=== PATIENT | female | born 1975 | race Caucasian/White ===

== ENCOUNTER 2016-08-30 08:33 | Day surgery (SDC) | payer BC ==
[~2016-08-30 08:33] MED LIST: Buffered Lidocaine 1% SYR 3ML* 3 ML/SYR SYRINGE INTRADERM ONE; Dexamethasone IV* 4 MG/ML 1 ML (4 MG) IV SLOW PU ONE; Famotidine IV* 10 MG/ML 2 ML (20 mg) IV ONE
[2016-08-30] MEDS ORDERED: Dexamethasone IV* 4 MG/ML 1 ML (4 MG) ONE (08:50)
[2016-08-30] MEDS ORDERED: Famotidine IV* 10 MG/ML 2 ML (20 mg) ONE (08:50)
[2016-08-30 09:23] LABS: Manual Entry Verification HAN0055; UR Preg Internal Control QC Line Present
[2016-08-30] MEDS ORDERED: Ondansetron INJ* 2 MG/ML VIAL IV PRN (09:31)
[2016-08-30] MEDS ORDERED: fentaNYL* 50 MCG/ML 2 ML VIAL (100 MCG VIAL) IV PRN (09:31)
[2016-08-30] MEDS ORDERED: fentaNYL* 50 MCG/ML 5 ML VIAL (250 MCG VIAL) ONE (09:33)
[2016-08-30] MEDS ORDERED: Lidocaine 2% PF * 5 ML VIAL ONE (09:33)
[2016-08-30] MEDS ORDERED: Ondansetron INJ* 2 MG/ML VIAL ONE (09:33)
[2016-08-30] MEDS ORDERED: Propofol* 10 MG/ML 20 ML BTL IV PUSH ONE (09:33)
[2016-08-30] MEDS ORDERED: Midazolam* 1 MG/ML 5 ML VIAL (5 MG) ONE (09:33)
[2016-08-30] MEDS ORDERED: Ketorolac INJ* 30 MG/ML 1 ML VIAL ONE (09:33)
[2016-08-30] MEDS ORDERED: Glycopyrrolate IV* 0.2 MG/ML 1 ML VIAL ONE (09:48)
[2016-08-30] MEDS ORDERED: Atropine 1MG/ML INJ* 1 ML VIAL ONE (09:49)
[2016-08-30] MEDS ORDERED: fentaNYL* 50 MCG/ML 2 ML VIAL (100 MCG VIAL) ONE (10:42)
[2016-08-30] MEDS: oxyCODONE/Acetamin 5/325 MG* TAB PO PRN ×2 (10:46→10:53)
[2016-08-30] MEDS ORDERED: oxyCODONE/Acetamin 5/325 MG* TAB ONE (10:46)
[2016-08-30 11:07] VITALS: BP 109/67
--- NOTE | 2016-08-30 22:26 | OP ---
DATE OF OPERATION: 08/30/16 - [facility] DATE OF : 71 SURGEON: Waylon Hudson MD MUD TRUCKER: None. ANESTHESIOLOGIST: Mike Lyon MD ANESTHESIA: General endotracheal tube. PRE-OP DIAGNOSIS: Endometrial polyp. POST-OP DIAGNOSIS: Thickened, fluffy endometrium, question polyp. OPERATIVE PROCEDURE: D and C, hysteroscopy, MyoSure. ESTIMATED BLOOD LOSS: Minimal. SPECIMEN: Include endometrium and question polyp. FINDINGS: On exam under anesthesia, the uterus was mid position, sounded to 7 cm. On hysteroscopy, there was thickened, fluffy endometrium much of which was loose and friable and detached making visualization difficult. DESCRIPTION OF PROCEDURE: The patient identified, procedure identified as D and C, hysteroscopy, MyoSure. The patient was taken to the operating room, prepped, and draped in the usual fashion in the dorsal lithotomy position under general anesthesia. Two single-tooth tenaculums were placed on the anterior lip of the cervix. Cervix was easily dilated up to #28 Burke dilator. The MyoSure hysteroscope was inserted. The above findings were noted. The MyoSure LITE was utilized to basically resect any fluffy, thickened endometrium so better visualization could occur. The cavity appeared normal. There were no polyps. No fibroid visualized distinctly and both tubal ostia were present and visualized. The rest of the cavity appeared normal and all instruments were removed from vagina. The both single-tooth tenaculums were removed and the patient returned to recovery room in stable condition. All sponge and instrument counts were correct. [id number]/[facility] #: [id number] MTDD
== END 2016-08-30 11:52 | disposition home or self-care (01) ==
LOC: OR 08:33
PROVIDERS: ATTEND Obstetrics & Gynecology
DX: N84.0 Polyp of corpus uteri (principal); R00.2 Palpitations; J45.909 Unspecified asthma, uncomplicated
CPT/HCPCS: 36415; 81025; 86850; 86900; 86901; 88305; A9270-GY; J0461; J1100; J1885; J2250; J2405; J2704; J3010

== ENCOUNTER 2018-03-11 20:05 | Emergency (ER) | payer BC ==
[2018-03-11 21:21] VITALS: BP 119/70
--- NOTE | 2018-03-11 21:31 | UC ---
- HPI Summary HPI Summary: 42 y/o female presents to the urgent care requesting a urine and blood test since she did 2 this morning and were positive. Pt reports she has been trying to get for the past couple of year w/o any success. She had IUI at the [facility] in Jul-Aug of this year and she has been experiencing some hormonal dysfunction. Her periods have been irregular, her digestion and mood has changed. For the past week she has been experiencing breast engorgement. LMP: 01/22/2018. Pt denies fever, SOB,MON, chest pain, abdominal pain, pelvic pain, urinary symptoms, N/V/D. - History of Current Complaint Chief Complaint: UCGeneralIllness Stated Complaint: PREG TEST Time Seen by Provider: 03/11/18 21:21 Hx Obtained From: Patient Chief Complaint: Other: - Onset/Duration: Started Weeks Ago - 1 week, Still Present Timing: Constant Severity: Mild Current Severity: None Pain Intensity: 0 Location of Pain: None Character: None Aggravating Factors: Nothing Alleviating Factors: Nothing Associated Signs and Symptoms: Positive: Negative - Assessment Hx Now: Yes - positive at home test Hx Hysterectomy: No - Risk Factors Ectopic Risk Factor: Negative Ovarian Torsion Risk Factor: Negative - Allergies/Home Medications Allergies/Adverse Reactions: Allergies Allergy/AdvReac Type Severity Reaction Status Date / Time epinephrine Allergy Unknown Verified 03/11/18 21:07 Reaction Details gluten Allergy Abdominal Verified 03/11/18 21:07 Pain Home Medications: Home Medications Gabapentin 300 mg PO BEDTIME 03/11/18 [History Confirmed 03/11/18] Naltrexone HCl Dihydrate 50 gm PO BEDTIME 03/11/18 [History Confirmed 03/11/18] PMH/Surg Hx/FS Hx/Imm Hx Previously Healthy: Yes GI/ History: Other - colitis Other GI/ History: Celiac disease Other Neurological History: Herniated discs Other History Of: Negative For: HIV, Hepatitis B, Hepatitis C, Anticoagulant Therapy - Surgical History Surgical History: Yes Surgery Procedure, Year, and Place: LEFT FOOT BUNIONECTOMY 2008. RIGHT FOOT SLICED THROUGH TENDON ON BIG TOE AND REATTACHED IT TO THE 2ND TOE-2008 - Family History Known Family History: Positive: Hypertension - Social History Occupation: Employed Full-time Lives: With Family Alcohol Use: Rare Alcohol Amount: 3 per week Substance Use Type: None Smoking Status (MU): Never Smoked Tobacco Have You Smoked in the Last Year: No Review of Systems Constitutional: Negative Skin: Negative Eyes: Negative ENT: Negative Respiratory: Negative Cardiovascular: Negative Gastrointestinal: Negative Genitourinary: Negative Motor: Negative Neurovascular: Negative Musculoskeletal: Negative Neurological: Negative Psychological: Negative Is Patient Immunocompromised?: No All Other Systems Reviewed And Are Negative: Yes Physical Exam - Summary Physical Exam Summary: VITAL SIGNS: Reviewed. GENERAL: Patient is a well developed and nourished female who is sitting comfortable in the examining table. Patient is not in any acute respiratory distress. HEAD AND FACE: No signs of trauma. No ecchymosis, hematomas or skull depressions. No sinus tenderness. EYES: PERRLA, EOMI x 2, No injected conjunctiva, clear watery eyes, no nystagmus. No photophobia. EARS: Hearing grossly intact. Ear canals and tympanic membranes are within normal limits. MOUTH: pharynx with no erythema, no exudates,no palatal petechiae. no B/L tonsillar enlargement Uvula in midline. NECK: Supple, trachea is midline, no lymphadenopathy, no JVD, no carotid bruit, no c-spine tenderness, neck with full ROM. CHEST: Symmetric, no tenderness at palpation LUNGS: Clear to auscultation bilaterally. No wheezing or crackles. CVS: Regular rate and rhythm, S1 and S2 present, no murmurs or gallops appreciated. ABDOMEN: Soft, non-tender. No signs of distention. No rebound no guarding, and no masses palpated. Bowel sounds are normal. BACK:no scoliosis or lesions, non tender to palpation, No B/L CVA tenderness EXTREMITIES: FROM in all major joints, no edema, no cyanosis or clubbing. NEURO: Alert and oriented x 3. No acute neurological deficits. Speech is normal and follows commands. SKIN: Dry and warm - Physical Exam Triage Information Reviewed: Yes Course/Dx - Course Course Of Treatment: 42 y/o female presents to the urgent care requesting a urine and blood test since she did 2 this morning and were positive. Pt reports she has been trying to get for the past couple of year w/o any success. She had IUI at the [facility] in Jul-Aug of this year and she has been experiencing some hormonal dysfunction. Her periods have been irregular, her digestion and mood has changed. For the past week she has been experiencing breast engorgement. LMP: 01/22/2018. Pt denies fever, SOB, MON, chest pain, abdominal pain, pelvic pain, urinary symptoms, N/V/D. Hx obtained. PE:WNL. UA: negative. UA : Positive. HCG ordered. Pt Rx Prenaltal vitamins and givne referral w/ OBGYN Dr Man for pre-jennifer care. D/ C instructions explained. Pt understood and agreed w/ plan of care - Differential Diagnosis/HQI/PQRI: Incomplete , Missed , Spontaneous , Amenorrhea, Ectopic , Intrauterine , First Trimester Bleeding, Early , UTI - Diagnoses Provider Diagnoses: Discharge - Sign-Out/Discharge Documenting (check all that apply): Patient Departure All imaging exams completed and their final reports reviewed: No Studies - Discharge Plan Condition: Stable Disposition: HOME Prescriptions: Pnv No.121/Iron/Folic Acid [ Multivitamin Tablet] 1 each PO DAILY #30 tablet Patient Education Materials: (ED) Referrals: Nish Man MD [Medical Doctor] - 3 Days Maria T Conley MD [Primary Care Provider] - 1 Week Additional Instructions: 1- test is positive. 2- Please start taking vitamins 3- F/u w/ OBBREND[facility] Dr Man for your care. - Billing Disposition and Condition Condition: STABLE Disposition: Home
== END 2018-03-11 22:07 | disposition home or self-care (01) ==
LOC: UCEAST 20:05
DX: Z33.1 Pregnant state, incidental (principal); Z88.8 Allergy status to other drugs, medicaments and biological substances
CPT/HCPCS: 36415; 81003; 84702; 99212; G0463

== ENCOUNTER 2018-03-23 11:48 | Emergency (ER) | payer BC ==
[2018-03-23 12:44] LABS: INR 1.06 (0.77-1.02)
[2018-03-23 12:55] LABS: EGFR Non-African American 82.7 (>60)
--- NOTE | 2018-03-23 13:14 | RAD ---
HISTORY: Beta hCG trending downwards COMPARISONS: None TECHNIQUE: Multiple transverse and longitudinal ultrasound images were obtained of the pelvis using grayscale, color flow, spectral and M-mode sonographic imaging. FINDINGS: UTERUS: The uterus is normal in shape, size, contour, and echotexture. GESTATION: A pole measuring 0.6 cm identified which corresponds to a gestational age of 6 weeks and 4 days. There is no cardiac activity or movement identified. There is no yolk sac. The mean gestational sac diameter measures 1.3 centimeters yielding a gestational age of 6 weeks and 1 day. CUL-DE-SAC: There is no free fluid within the cul-de-sac. RIGHT OVARY: The right ovary measures 2.8 x 1.8 x 1.7 cm. LEFT OVARY: The left ovary measures 2.2 x 1.6 x 1.6 cm. And the left ovary there is an anechoic and avascular structure measuring 1 cm in greatest dimension most consistent with a corpus luteum. IMPRESSION: The pole and mean gestational sac diameter correspond to a gestational age of 6 weeks and 4 days and 6 weeks and 1 day, respectively. There is no cardiac activity, motion or yolk sac identified. Sonographic findings in the presence of declining beta-hCG indicates demise. Close clinical and sonographic follow-up including serial beta hCG is advised.
--- NOTE | 2018-03-23 14:42 | ED ---
- HPI Summary HPI Summary: Patient is a 42-year-old female presenting to the ED with the concern for low hCGs 2 and diffuse abdominal cramping. She was sent in by her [employer] SAL[employer] CONSULTANT to assess for embryonic demise. She denies any nausea, vomiting, diarrhea, constipation. No history of miscarriage. States her original HEG level was taken 13 days ago and was listed at 6700, 1 week after that it was recorded at 7100. She sees Madisyn Wyatt, public health advisor. She denies any vaginal bleeding or chance of STDs. Pain is rated a 4/10, constant and cramping. She denies taking anything for pain. - History of Current Complaint Chief Complaint: EDOBProblems Stated Complaint: ABD PAIN/8 WKS PREG Time Seen by Provider: 03/23/18 12:02 Hx Obtained From: Patient Chief Complaint: Concern for Embryonic Dem Onset/Duration: Started Hours Ago Timing: Constant Severity: Moderate Current Severity: Moderate Pain Intensity: 0 Location of Pain: Diffuse Character: Burning Associated Signs and Symptoms: Negative: Appetite, Urinary Symptoms, Vaginal Bleeding or Discharge - Assessment Hx Now: Yes - positive at home test Hx Hysterectomy: No - Allergies/Home Medications Allergies/Adverse Reactions: Allergies Allergy/AdvReac Type Severity Reaction Status Date / Time epinephrine Allergy Unknown Verified 03/23/18 11:54 Reaction Details gluten Allergy Abdominal Verified 03/23/18 11:54 Pain PMH/Surg Hx/FS Hx/Imm Hx Previously Healthy: Yes Endocrine/Hematology History: Denies: Hx Anticoagulant Therapy, Hx Diabetes, Hx Thyroid Disease Cardiovascular History: Denies: Hx Congestive Heart Failure, Hx Deep Vein Thrombosis, Hx Hypertension , Hx Myocardial Infarction, Hx Pacemaker/ICD, Other Cardiovascular Problems/ Disorders Respiratory History: Reports: Hx Asthma - EXERCISE INDUCED Denies: Hx Chronic Obstructive Pulmonary Disease (COPD), Hx Lung Cancer, Hx Pneumonia, Hx Pulmonary Embolism, Other Respiratory Problems/Disorders GI History: Reports: Other GI Disorders - ulcerative colitis Denies: Hx Gall Bladder Disease, Hx Gastrointestinal Bleed, Hx Ulcer, Hx Urosepsis History: Denies: Hx Kidney Stones, Hx Renal Disease Musculoskeletal History: Reports: Hx Arthritis - spine,, Other Musculoskeletal History - hypermobility syndrome Denies: Hx Rheumatoid Arthritis, Hx Osteoporosis Sensory History: Reports: Hx Contacts or Glasses - contacts, glasses Denies: Hx Hearing Aid, Other Sensory Impairments Opthamlomology History: Reports: Hx Contacts or Glasses - contacts, glasses Denies: Other Sensory Impairments Neurological History: Reports: Hx Nerve Disease Denies: Hx Dementia, Hx Migraine, Hx Seizures, Hx Transient Ischemic Attacks (TIA), Other Neuro Impairments/Disorders - PAIN CLINIC PATIENT Psychiatric History: Denies: Hx Anxiety, Hx Depression, Hx Panic Disorder, Hx Schizophrenia, Hx Bipolar Disorder - Surgical History Surgery Procedure, Year, and Place: LEFT FOOT BUNIONECTOMY 2008. RIGHT FOOT SLICED THROUGH TENDON ON BIG TOE AND REATTACHED IT TO THE 2ND TOE-2008 Hx Anesthesia Reactions: No - Immunization History Hx Pertussis Vaccination: No Immunizations Up to Date: Yes Infectious Disease History: No Infectious Disease History: Denies: Hx Hepatitis, Hx Human Immunodeficiency Virus (HIV), Traveled Outside the [place] in Last 30 Days - Family History Known Family History: Positive: Hypertension - Social History Occupation: Employed Full-time Lives: With Family Alcohol Use: Weekly Alcohol Amount: 3 per week Hx Substance Use: No Substance Use Type: Reports: None Hx Tobacco Use: No Smoking Status (MU): Never Smoked Tobacco Have You Smoked in the Last Year: No Review of Systems Constitutional: Negative Negative: Fever, Chills, Fatigue, Skin Diaphoresis Negative: Palpitations, Chest Pain Negative: Shortness Of Breath, Cough Positive: Abdominal Pain. Negative: Vomiting, Diarrhea, Nausea Genitourinary: Negative Positive: no symptoms reported, see HPI Negative: Arthralgia Neurological: Negative Positive: Anxious All Other Systems Reviewed And Are Negative: Yes Physical Exam - Physical Exam Triage Information Reviewed: Yes Vital Signs Reviewed: Yes Appearance: Positive: Well-Nourished Skin: Positive: Warm, Skin Color Reflects Adequate Perfusion Head/Face: Positive: Normal Head/Face Inspection Eyes: Positive: EOMI, KEVIN, Conjunctiva Clear Neck: Positive: Supple, No Lymphadenopathy Respiratory/Lung Sounds: Positive: Clear to Auscultation, Breath Sounds Present Cardiovascular: Positive: RRR, Pulses are Symmetrical in both Upper and Lower Extremities Musculoskeletal: Positive: Strength/ROM Intact Neurological: Positive: Speech Normal Psychiatric: Positive: Normal, Affect/Mood Appropriate AVPU Assessment: Alert Diagnostics - Vital Signs Vital Signs Temp Pulse Resp BP Pulse Ox 03/23/18 11:55 97.8 F 76 14 120/71 99 - Laboratory Lab Results: Lab Results 03/23/18 03/23/18 03/23/18 Range/Units 12:27 12:27 12:27 INR (Anticoag Therapy) 1.06 H (0.77-1.02) APTT 28.6 (26.0-36.3) seconds Sodium 136 (135-145) mmol/L Potassium 3.9 (3.5-5.0) mmol/L Chloride 106 (101-111) mmol/L Carbon Dioxide 26 (22-32) mmol/L Anion Gap 4 (2-11) mmol/L BUN 8 (6-24) mg/dL Creatinine 0.76 (0.51-0.95) mg/dL Est GFR ( Amer) 100.0 (>60) Est GFR (Non-Af Amer) 82.7 (>60) BUN/Creatinine Ratio 10.5 (8-20) Glucose 101 H (70-100) mg/dL Lactic Acid 1.4 (0.5-2.0) mmol/L Calcium 9.0 (8.6-10.3) mg/dL Total Bilirubin 0.60 (0.2-1.0) mg/dL AST 16 (13-39) U/L ALT 13 (7-52) U/L Alkaline Phosphatase 39 (34-104) U/L Total Protein 6.7 (6.4-8.9) g/dL Albumin 4.0 (3.2-5.2) g/dL Globulin 2.7 (2-4) g/dL Albumin/Globulin Ratio 1.5 (1-3) Beta HCG, Quant 6116.00 mIU/mL Result Diagrams: 03/23/18 12:27 Lab Statement: Any lab studies that have been ordered have been reviewed, and results considered in the medical decision making process. Course/Dx - Course Course Of Treatment: On physical examination, patient has diffuse lower abdominal tenderness on my palpation. HCG obtained which is 6116. This is lower than her previous 7100. Ultrasound obtained to assess for an IUP. The pole and mean gestational sac diameter corresponding to gestational age of 6 weeks and 4 days in 6 weeks and 1 day, respectively. There is no cardiac activity, motion or yolk sac identified. Sonographic findings of the presence of declining beta hCG indicates demise. Close clinical and sonographic follow-up including serial beta hCG is advised. This was discussed with patient and she states she will follow-up with her [employer]. Disc of ultrasound and lab work is given to the patient. She continues to decline any pain management. - Differential Diagnosis/HQI/PQRI: Incomplete , Missed , Spontaneous , Threatened , Early - Diagnoses Provider Diagnoses: Threatened Discharge - Sign-Out/Discharge Documenting (check all that apply): Patient Departure - Discharge Plan Condition: Stable Disposition: HOME Patient Education Materials: Miscarriage (ED) Referrals: Maria T Conley MD [Primary Care Provider] - Additional Instructions: Please follow up with OBGYN public health advisor - Billing Disposition and Condition Condition: STABLE Disposition: Home
[2018-03-23 14:58] VITALS: BP 118/73
== END 2018-03-23 14:25 | disposition home or self-care (01) ==
LOC: ED 11:48
DX: O20.0 Threatened abortion (principal); Z3A.08 8 weeks gestation of pregnancy; Z37.9 Outcome of delivery, unspecified; R10.9 Unspecified abdominal pain; F41.9 Anxiety disorder, unspecified
CPT/HCPCS: 36415; 76817; 80053; 83605; 84702; 85610; 85730; 99282

== ENCOUNTER 2018-04-17 09:36 | Emergency (ER) | payer BC ==
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
--- NOTE | 2018-04-17 11:32 | RAD ---
INDICATION: Right lower leg injury. TECHNIQUE: 2 views of the right lower leg were obtained. FINDINGS: There is anterior soft tissue swelling. The bones are normal alignment. No fracture is seen. IMPRESSION: NO EVIDENCE OF FRACTURE.
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
[2018-04-17] MEDS ORDERED: Lidocaine 1%* 5 ML VIAL INJ ONE (12:06)
[2018-04-17 12:25] VITALS: BP 108/67
== END 2018-04-17 13:21 | disposition home or self-care (01) ==
LOC: UCEAST 09:36
DX: S06.0X9A Concussion with loss of consciousness of unspecified duration, initial encounter (principal); S16.1XXA Strain of muscle, fascia and tendon at neck level, initial encounter; S29.012A Strain of muscle and tendon of back wall of thorax, initial encounter; S39.012A Strain of muscle, fascia and tendon of lower back, initial encounter; S81.811A Laceration without foreign body, right lower leg, initial encounter; V13.4XXA Pedal cycle driver injured in collision with car, pick-up truck or van in traffic accident, initial encounter; Y93.55 Activity, bike riding; Y92.9 Unspecified place or not applicable; Z88.8 Allergy status to other drugs, medicaments and biological substances
CPT/HCPCS: 12001; 12002; 13121; 70450; 72125; 99212; G0463

== ENCOUNTER 2018-10-23 20:12 | Emergency (ER) | payer BC ==
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
--- OUTSIDE RECORDS SUMMARY | 2018-10-23 20:29 | XMS REPORT | Continuity of Care Document ---
:1975 External Reference #:[id number] Author Name Jamila Zazueta Care Team Providers Name Role Phone Maria T Conley MD Primary Care Physician Unavailable Payers Date Identification Numbers Payment Provider Subscriber Policy Number: [id number] [employer] Cathy Basilio PayID: [id number] [address] [address] [place] [address] Effective: 2018 Policy Number: [id number] Esurance Insurance Cathy Bas[employer] Onset: 1921 PayID: [id number] [address] [place] [address] Advance Directives Description No Information Available Problems Active Problems Provider Date Major depressive disorder Donnell Gage M.D.,FACP Onset: 04/03/2017 Lumbar disc prolapse with Donnell Gage M.D.,FACP Onset: 12/13/2017 radiculopathy Family History Date Family Member(s) Observation Comments General Rheumatoid Arthritis General Hypertension General jogrens disease Father Prostate Cancer Mother Osteoporosis Social History Type Date Description Comments Sex Unknown Lives With Alone Occupation Currently Working ETOH Use Rarely consumes alcohol Tobacco Use Start: Unknown Patient has never smoked Smoking Status Reviewed: 10/16/18 Patient has never smoked Exercise Type/Frequency Exercises regularly Allergies, Adverse Reactions, Alerts Active Allergies Reaction Severity Comments Date Epinephrine heart palpitations and shakey 11/22/2017 Symbicort Diarrhea 07/11/2018 Gluten 07/11/2018 Medications Active Medications SIG Qnty Indications Ordering Date Provider Azithromycin 2 tabs by mouth on 6tabs Mike Mendez, 10/16/2018 250mg day 1; 1 tab by M.D. Tablets mouth every day on days 2-5 Systane apply twice daily 15ml Mike Michaelr, 07/17/2018 0.4-0.3% Solution as needed for dry M.D. eyes, preservative free Adderall XR Take one 14caps F90.8 Mike Eliasdor, 07/17/2018 10mg Caps ER capsule/tablet M.D. 24HR daily by mouth Benadryl Itch Stopping apply daily to 30units Mike Vanessa, 07/17/2018 2% affected area M.D. Gel Flector apply 1 patch up to 30units M70.62 Mike Vanessa, 07/17/2018 1.3% Patches twice dailiy as M.D. needed for pain Naltrexone HCL take 2 (two) 4.5 mg 15gm M79.1 Mike Mendez, 11/22/2017 Powder compounded in M.D. capsules by mouth every day Gabapentin 1 by mouth three Unknown 300mg Capsules times a day Cyclobenzaprine HCL 1 by mouth prn Unknown 5mg Tablets Ibuprofen 200 400-600mg every 6 Unknown 200mg hours as needed for Tablets pain. Bupropion HCL ER (SR) Take One Tablet By Unknown Mouth Every Morning 100mg Tablets ER 12HR And 1 Tablet AT Noon Methocarbamol Take One To Two Unknown 500mg Tablets By Mouth Tablets Four Times A Day Driving Precautions Ventolin HFA Inhale Two Puffs By Unknown 108(90Base) Mouth Four Times A mcg/Act Aerosol Day History Medications Incentive Use as instructed J45.909 Elvira 07/16/2018 - Spirometer LAINE Velazco 08/10/2018 No Active Unknown 03/17/2018 - Medications 03/17/2018 Vitamins Take one Mike Mendez, 03/17/2018 - capsule/tablet M.D. 08/10/2018 28-0.8mg Tablets daily by mouth Cephalexin three times a day 21caps Donnell Morris 04/08/2017 - 500mg by mouth Esme Gage,[facility] 04/15/2017 Capsules Wellbutrin SR 1 in the morning 60tabs Donnell Morris 12/08/2016 - 100mg and 1 at noon Esme Gage,[facility] 03/17/2018 Tablets ER 12HR (bid) Morphine Sulfate 1 tablet by mouth 30tabs Donnell Morris 09/12/2016 - 3x daily as needed Esme Gage,FACP 12/08/2016 15mg Tablets Ibuprofen 200 400-600mg every 6 Unknown - 200mg hours as needed 03/17/2018 Tablets for pain. Cats Claw Unknown - Capsules 03/17/2018 L-Glutamine Unknown - Powder 03/17/2018 Slippery Elm Unknown - 03/17/2018 THF (Folate) Unknown - 03/17/2018 Medications Administered in Office Medication SIG Qnty Indications Ordering Provider Date Depomedrol 40MG Archie Hartmann M.D. 08/11/2018 Injection Immunizations Description No Information Available Vital Signs Date Vital Result Comment 10/16/2018 10:30am Height 64.5 inches 5'4.50" Weight 138.00 lb Heart Rate 96 /min BP Systolic Sitting 108 mmHg BP Diastolic Sitting 68 mmHg Body Temperature 98.4 F Pain Level 7 O2 % BldC Oximetry 97 % BMI (Body Mass Index) 23.3 kg/m2 09/15/2018 10:42am Height 64.5 inches 5'4.50" Weight 138.00 lb Heart Rate 70 /min BP Systolic 108 mmHg BP Diastolic 60 mmHg Respiratory Rate 18 /min Pain Level 7 BMI (Body Mass Index) 23.3 kg/m2 08/11/2018 10:20am Height 64.5 inches 5'4.50" Weight 138.00 lb Heart Rate 73 /min BP Systolic 116 mmHg BP Diastolic 60 mmHg Respiratory Rate 16 /min Body Temperature 98.0 F Pain Level 5 BMI (Body Mass Index) 23.3 kg/m2 07/21/2018 3:41pm Height 64.50 inches 5'4.50" Weight 142.00 lb Heart Rate 78 /min BP Systolic 114 mmHg BP Diastolic 68 mmHg Respiratory Rate 18 /min Pain Level 7 BMI (Body Mass Index) 24.0 kg/m2 07/17/2018 9:54am Height 64.50 inches 5'4.50" Weight 142.00 lb Heart Rate 68 /min BP Systolic Sitting 98 mmHg BP Diastolic Sitting 58 mmHg Respiratory Rate 14 /min Pain Level 7 BMI (Body Mass Index) 24.0 kg/m2 07/16/2018 9:45am Height 64.50 inches 5'4.50" Weight 143.00 lb Heart Rate 74 /min BP Systolic Sitting 102 mmHg reg adult cuff left arm BP Diastolic Sitting 78 mmHg reg adult cuff left arm Respiratory Rate 24 /min O2 % BldC Oximetry 98 % at rest on room air BMI (Body Mass Index) 24.2 kg/m2 Neck Circumference in inches 13 03/17/2018 11:30am Height 64.50 inches 5'4.50" Weight 140.44 lb Heart Rate 80 /min BP Systolic Sitting 101 mmHg BP Diastolic Sitting 71 mmHg Respiratory Rate 14 /min Pain Level 7 BMI (Body Mass Index) 23.7 kg/m2 01/27/2018 2:15pm Height 64.50 inches 5'4.50" Weight 143.38 lb Heart Rate 74 /min BP Systolic Sitting 116 mmHg BP Diastolic Sitting 65 mmHg Respiratory Rate 14 /min Pain Level 6 BMI (Body Mass Index) 24.2 kg/m2 11/22/2017 11:19am Height 64.50 inches 5'4.50" Weight 147.50 lb Heart Rate 79 /min BP Systolic 100 mmHg BP Diastolic 66 mmHg Body Temperature 99.4 F O2 % BldC Oximetry 97 % BMI (Body Mass Index) 24.9 kg/m2 Results Test Date Facility Test Result H/L Range Note Cardiolipin 03/21/2018 [facility] Phospholipid Ab < 9.4 MPL 1 Igg/Igm [address] IgM, [place] [address] [phone] Phospholipid Ab IgG < 9.4 GPL 2 Paraneoplastic 01/27/2018 [facility] Paraneoplastic Ab See Comment [address] [place] [address] [phone] Reflex Added None. 4 Anti-Neuronal Nuclear Ab Type2 Negative titer <1:240 5 Anti-Neuronal Nuclear Ab Type3 Negative titer <1:240 6 Anti-Glial/Neuronal Nuc Ab-1 A Negative titer <1:240 7 Purkinje Cell Cytoplasm Type 1 Negative titer <1:240 8 Purkinje Cell Cytoplasm Type 2 Negative titer <1:240 9 Purkinje Cell Cytoplasm Typ Tr Negative titer <1:240 10 Amphiphysin Antibody Negative titer <1:240 11 CRMP-5 IgG Antibody Negative titer <1:240 12 Anti-Striated Muscle Antibody Negative titer <1:120 13 Calcium Channel Binding Ab P/Q 0.00 nmol/L <=0.02 14 N Type Calcium Channel Binding 0.00 nmol/L <=0.03 15 ACh Receptor Muscle Binding Ab See Comment nmol/L <=0.02 16 AChR Ganglionic Neuronal Ab 0.00 nmol/L <=0.02 17 Voltage-Gated Potassium Chann 0.00 nmol/L <=0.02 18 Laboratory test 01/27/2018 [facility] Free Cortisol 0.242 g/ dL [address] [place] [address] [phone] Anti-Neuronal Nuclear Ab Type1 Negative titer <1:240 Ach Receptor Binding AB 0.0 nmol/L 0.0-0.4 20 Free Estradiol 01/27/2018 [facility] Percent Free Estradiol 1.8 % [address] [place] [address] [phone] Free Estradiol 0.43 pg/mL Abnormal 22 Sex Hormone Binding Globulin 48.7 nmol/L 23 Total Estradiol 24 pg/mL 24 FSH And LH 01/27/2018 [facility] FSH (Follicle Stim 18.0 mIU/mL [address] Hormone) [place] [address] [phone] LH (Lutenizing Hormone) 6.0 mcIU/mL 26 Celiac Hla 11/28/2017 [facility] Hla-Dqa1 SEE BELOW [address] [place] [address] [phone] Hla-DQB1 SEE BELOW 28 Celiac Gene Pairs Present? Yes Celiac Gene Interpretation See Comment 29 Ssa/SSB Abs Igg 11/28/2017 [facility] SS-A/Ro Antibody <0.[address] [place] [address] [phone] SS-B/La Antibody <0.2 U 31 Anca AB Ser If 11/28/2017 [facility] C-Anca [place] [address] [phone] P-Anca Negative Negative 32 Laboratory test 11/28/2017 [facility] Erythrocyte Sed 10 mm/Hr N 0-[address] [place] [address] [phone] Aso (Antistreptolysin O) Titer Negative IU/mL <200 Iu/mL 34 Ferritin 19.5 ng/mL N 11-307 35 Magnesium 2.2 mg/dL N 1.9-2.7 36 Creatine Kinase(CK) 150 U/L N 10-223 37 Hla B27 11/28/2017 [facility] Hla B27 Negative [address] [place] [address] [phone] Hla B27 Interp See Comment 39 Laboratory test 11/28/2017 [facility] Vitamin D, 1,25 77 pg/mL 18-78 [address] [place], [place] [address] [phone] Vitamin B12 And 11/28/2017 [facility] Vitamin B12 484 pg/mL N 180-914 41 Folate Serum [address] [place] [address] [phone] Folic Acid (Folate) 15.71 ng/mL >3.99 42 Laboratory test 09/04/2017 [facility] HCG < 0.60 mIU/ mL [address] [place] [address] [phone] Progesterone 8.9 ng/mL 44 1 REFERENCE VALUE <15.0 (Negative) 2 REFERENCE VALUE <15.0 (Negative) Test Performed by: [address] [address] 3 Part of this testing algorithm includes [facility]' ARBI: Acetylcholine Receptor (Muscle AChR) Binding Antibody, Serum. This test is temporarily unavailable; therefore, this result is not incorporated into the interpretation. * No informative autoantibodies were detected in the Paraneoplastic Evaluation. However, a negative result does not exclude neurological autoimmunity with or without associated neoplasia. Sensitivity and specificity of antibody testing are enhanced by testing both serum and CSF. 4 ADDITIONAL INFORMATION This test was developed and its performance characteristics determined by [facility] in a manner consistent with CLIA requirements. This test has not been cleared or approved by the U.S. Food and Drug Administration. 5 ADDITIONAL INFORMATION This test was developed and its performance characteristics determined by [facility] in a manner consistent with CLIA requirements. This test has not been cleared or approved by the U.S. Food and Drug Administration. 6 ADDITIONAL INFORMATION This test was developed and its performance characteristics determined by [facility] in a manner consistent with CLIA requirements. This test has not been cleared or approved by the U.S. Food and Drug Administration. 7 ADDITIONAL INFORMATION This test was developed and its performance characteristics determined by [facility] in a manner consistent with CLIA requirements. This test has not been cleared or approved by the U.S. Food and Drug Administration. 8 ADDITIONAL INFORMATION This test was developed and its performance characteristics determined by [facility] in a manner consistent with CLIA requirements. This test has not been cleared or approved by the U.S. Food and Drug Administration. 9 ADDITIONAL INFORMATION This test was developed and its performance characteristics determined by [facility] in a manner consistent with CLIA requirements. This test has not been cleared or approved by the U.S. Food and Drug Administration. 10 ADDITIONAL INFORMATION This test was developed and its performance characteristics determined by [facility] in a manner consistent with CLIA requirements. This test has not been cleared or approved by the U.S. Food and Drug Administration. 11 ADDITIONAL INFORMATION This test was developed and its performance characteristics determined by [facility] in a manner consistent with CLIA requirements. This test has not been cleared or approved by the U.S. Food and Drug Administration. 12 ADDITIONAL INFORMATION This test was developed and its performance characteristics determined by [facility] in a manner consistent with CLIA requirements. This test has not been cleared or approved by the U.S. Food and Drug Administration. 13 ADDITIONAL INFORMATION This test was developed and its performance characteristics determined by [facility] in a manner consistent with CLIA requirements. This test has not been cleared or approved by the U.S. Food and Drug Administration. 14 ADDITIONAL INFORMATION This test was developed and its performance characteristics determined by [facility] in a manner consistent with CLIA requirements. This test has not been cleared or approved by the U.S. Food and Drug Administration. 15 ADDITIONAL INFORMATION This test was developed and its performance characteristics determined by [facility] in a manner consistent with CLIA requirements. This test has not been cleared or approved by the U.S. Food and Drug Administration. 16 Due to reagent unavailability, ARBI: Acetylcholine Receptor (Muscle AChR) Binding Antibody, Serum, will not be performed at [facility]. If Acetylcholine Receptor Binding Antibody testing is desired, please order FABAB: Acetylcholine Receptor Binding Antibody, which is performed at another laboratory. Given the differences in assay methodologies, direct comparison of quantitative results is not possible. Interpretation of these results should be made within the clinical context. If any concerns arise, laboratory consultation in regards to these results is available by calling . ADDITIONAL INFORMATION This test was developed and its performance characteristics determined by [facility] in a manner consistent with CLIA requirements. This test has not been cleared or approved by the U.S. Food and Drug Administration. 17 ADDITIONAL INFORMATION This test was developed and its performance characteristics determined by [facility] in a manner consistent with CLIA requirements. This test has not been cleared or approved by the U.S. Food and Drug Administration. 18 ADDITIONAL INFORMATION This test was developed and its performance characteristics determined by [facility] in a manner consistent with CLIA requirements. This test has not been cleared or approved by the U.S. Food and Drug Administration. Test Performed by: [facility] - [address] [address] 19 REFERENCE VALUE 6:00-10:30 AM Collection 0.121-1.065 mcg/dL ADDITIONAL INFORMATION This test was developed and its performance characteristics determined by [facility] in a manner consistent with CLIA requirements. This test has not been cleared or approved by the U.S. Food and Drug Administration. Test Performed by: [facility] - [facility] [address] [place] [address] 20 INTERPRETIVE INFORMATION: Acetylcholine Binding Ab Negative ....... 0.0 - 0.4 nmol/L Positive ....... 0.5 nmol/L or greater Approximately 85-90 percent of patients with myasthenia gravis (MG) express antibodies to the acetylcholine receptor (AChR), which can be divided into binding, blocking, and modulating antibodies. Binding antibody can activate complement and lead to loss of AChR. Blocking antibody may impair binding of acetylcholine to the receptor, leading to poor muscle contraction. Modulating antibody causes receptor endocytosis resulting in loss of AChR expression, which correlates most closely with clinical severity of disease. Approximately 10-15 percent of individuals with confirmed myasthenia gravis have no measurable binding, blocking, or modulating antibodies. Test developed and characteristics determined by [facility]. See Compliance Statement B: [facility]/ Performed by [facility], [address] [place] [address] [id number] [email or web address], [email or web address] Robledo MD - Lab. Director Test Performed by: [facility] [address] [place] [address] 21 Reference Range: Adult Females: 1.6 - 3.6 22 Reference Range: Adult Females: 0.6 - 7.1 23 Reference Range: Pubertal: 36.0 - 125.0 20 - 49y: 24.6 - 122.0 >49y: 17.3 - 125.0 Test Performed by: [facility] [place] [address] 24 Reference Range: Adult Females Follicular: 30 - 100 Luteal: 70 - 300 Postmenopausal: <15 25 Normally menstruating females - Follicular phase 3 - 9 - Mid-cycle peak 4 - 23 - Luteal phase 1 - 6 Postmenopausal females 16 - 114 26 Normally menstruating females - Follicular Phase 1 - 18 - Mid-Cycle Peak 24 - 105 - Luteal Phase 0.6 - 20 Postmenopausal females 15 - 62 27 RESULT: 01:03,05:01 REFERENCE VALUE Not Applicable 28 RESULT: 02:01,06:03 DQ Serologic Equivalent: 2,6 REFERENCE VALUE Not Applicable 29 These genes are permissive for celiac disease. The absence of HLA celiac permissive genes would make the presence of celiac disease unlikely. However, these genes can also be present in the normal population. ADDITIONAL INFORMATION Method: Molecular typing of HLA antigens performed using reverse SSOP and/or SSP methods, reported as serological equivalents and low to medium resolution molecular values. Performing Laboratory CLIA# [id number] Test Performed by: [facility] [place] [address] 30 REFERENCE VALUE <1.0 (Negative) 31 REFERENCE VALUE <1.0 (Negative) Test Performed by: [facility] [place] [address] 32 Negative for cANCA and pANCA patterns by immunofluorescence. ADDITIONAL INFORMATION This test was developed and its performance characteristics determined by [facility] in a manner consistent with CLIA requirements. This test has not been cleared or approved by the U.S. Food and Drug Administration. Test Performed by: [facility] [place] [address] 33 Please check labs today 34 Normal values may vary with age, season and geographic area. Titers above upper limits may be indicative of infection, however only a two dilution rise in titer is required to be considered significant. ASO titer will usually rise above upper limits within one week of exposure, increase to peak levels at 3-5 weeks and return to baseline level at 6-12 twelve months. 35 Please check labs today 36 Please check labs today 37 Please check labs today 38 REFERENCE VALUE Not Applicable 39 RESULT: HLA-B27 antigen was not detected. ADDITIONAL INFORMATION Method: Flow Cytometry Performing Laboratory CLIA# [id number] Test Performed by: [facility] - [facility] [address] [place] [address] 40 ADDITIONAL INFORMATION This test was developed and its performance characteristics determined by [facility] in a manner consistent with CLIA requirements. This test has not been cleared or approved by the U.S. Food and Drug Administration. Test Performed by: [facility] - [facility] [address] [place] [address] 41 Normal Range 180 to 914 Indeterminate Range 145 to 180 Deficient Range <145 42 Please check labs today 43 <5.0 Negative 5.0 - 25.0 Indeterminate (Repeat testing recommended after 72 hours) >25.0 Positive Perimenopausal women can display HCG levels of up to 20 mIU/mL 44 Female reference ranges for Progesterone: Follicular phase.......0.3 - 1.5 ng/ml Mid-luteal phase.......5.2 - 18.5 ng/ml Postmenopausal.........< 0.8 ng/ml 1st trimester.........4.7 - 50.0 ng/ml 2nd trimester.........19.4 - 45.3 ng/ml Procedures Date Code Description Status 08/11/2018 63447 Inject/Drain Joint/Bursa Major W/O US Completed 08/09/2018 99734 Sleep Study Unattended,HRT Rate,Oxygen Sat,Resp Completed Effort/Airflow 08/04/2018 81425 Diffusing Capacity Completed 08/04/2018 41613 Plethysmography Determination Lung Volumes & Per Airway Completed Resist 08/04/2018 03279 Pulmonary Function><Bronchodil Completed Encounters Type Date Location Provider Dx Diagnosis Office Visit 09/15/2018 Orthopedic Archie Hartmann M.D. S70.02xD Contusion of left 10:30a [facility] hip, subsequent encounter M54.16 Radiculopathy, lumbar region Office Visit 08/11/2018 9:45a Orthopedic Archie Hartmann M70.62 [facility] bursitis, left hip [facility] M70.62 Trochanteric bursitis, left hip Office Visit 07/21/2018 3:00p Orthopedic Archie Hartmann M70.62 [facility] bursitis, left hip [facility] M16.12 Unilateral primary osteoarthritis, left hip M54.16 Radiculopathy, lumbar region Office 07/17/2018 Rheumatology Mike M35.01 Sicca syndrome with Visit 9:40a [facility] Manrique M.D. M79.7 Fibromyalgia R20.8 Other disturbances of skin sensation M70.62 Trochanteric bursitis, left hip F90.8 Attention-deficit hyperactivity disorder, other type Office Visit 07/16/2018 Pulmonology And Mala J45.909 Unspecified asthma , 10:00a [facility] uncomplicated [facility] G47.9 Sleep disorder, unspecified R53.83 Other fatigue K21.9 Gastro-esophageal reflux disease without esophagitis Office 03/17/2018 Rheumatology Mike M35.01 Sicca syndrome with Visit 11:00a [facility] Manrique M.D. M79.7 Fibromyalgia Office Visit 01/27/2018 2:00p Rheumatology Bobby May Fibromyalgia [facility] Victoria R20.8 Other disturbances of skin sensation R76.0 Raised antibody titer M50.30 Other cervical disc degeneration, unsp cervical region R68.2 Dry mouth, unspecified Office Visit 11/22/2017 11:00a Rheumatology Bobby May [facility] R20.8 Other disturbances of skin sensation M50.30 Other cervical disc degeneration, unsp cervical region M51.36 Other intervertebral disc degeneration, lumbar region Plan of Treatment Future Appointment(s):02/16/2019 11:20 am - Mike Mendez M.D. at [facility]10/27/2018 10:30 am - Mala Fleming MD at [facility]10/16/2018 - Mike Mendez M.D.M35.01 Sicca syndrome with xevwzdbeckoavokehrvuS93.7 FibromyalgiaNew Therapy:Physical PprhkdfF74.80 Other acute gxycfgtqwA72.83 Other fatigueFollow up:Follow up in 3 to 4 months or sooner if needed
--- OUTSIDE RECORDS SUMMARY | 2018-10-23 20:29 | XMS REPORT | Continuity of Care Document ---
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 may take 2 as one dose at bedtime. Metrogel-Vaginal 1 applicator per 140gm Maria T Murrieta 09/26/19 0.75% Gel vagin qhs x 5. Esme Conley 19 Physical Therapy evaluate and M25.552 Maria T Murrieta 08/16/19 treat left hip Esme Conley 19 pain Ventolin HFA 2 puffs every 4 18units J45.998 Maria T Murrieta 04/03/20 108(90Base) mcg/Act times a day Esme Conley 18 Aerosol Methylcobalamin And 1 pill daily F43.21 Maria T Murrieta 01/25/20 Methyltetrahydrofolate Esme Conley 18 + Dha once a day 120units Maria T Murrieta 27-1&250mg THPK Esme Conley 00 Naltrexone HCL 2 by mouth daily 30tabs Maria T Murrieta 4.5mg Tablets Esme Conley 00 Cyclobenzaprine HCL one to two Unknown 5mg Tablets tablet every 00 night at bedtime as needed Methocarbamol 1 to 2 by mouth 80tabs Maria T LAdelina 500mg Tablets up to four times Esme Conley [address] precautions Wellbutrin XL 1 by mouth once 30tabs Maria T Murrieta 150mg Tablets ER 24HR daily Esme Conley 00 Ibuprofen 2 every 4 hours Unknown 200mg Tablets as needed 00 History Medications Metrogel-Vaginal 1 applicator per 70gm [facility] 07/15/2018 - 0.75% Gel vagina twice a [facility], 07/20/2018 day x 5 days Afnp-C Nitrofurantoin Monohyd 1 by mouth twice 14caps N39.0 Sandhya 05/28/2018 - Macro a day with food [facility], 06/04/2018 100mg Capsules Afnp-C Off Work Note 1/2 time work S06.0x Maria T Murrieta 04/24/2018 - 05/14/18 through 0A Esme Conley 05/28/2018 07/01/18 Cephalexin 1 by mouth three 30caps L03.11 Maria T Murrieta 04/24/2018 - 250mg Capsules times daily for 5 Esme Conley 05/14/2018 10 days. Stick Cane use as directed. One S70.02 Maria T Murrieta 04/24/2018 - xA Esme Conley 05/28/2018 Flovent HFA inhale two puffs 12units Maria T Murrieta 03/05/2018 - 110mcg/Act by mouth twice a Esme Conley 04/08/2018 Aerosol day Gabapentin 1 by mouth at 30caps G89.4 Maria T Murrieta 03/04/2018 - 300mg Capsules bedtime Esme Conley 05/28/2018 Medrol use as directed 1units Maria T Murrieta 02/26/2018 - 4mg TBPK Esme Conley 03/05/2018 Naloxone HCL Marai T Murrieta 11/27/2017 - 4mg/10ML Esme Conley 11/27/2017 Solution Morphine prn Unknown - 5mg Caps ER 24HR 01/24/2018 Immunizations CPT Code Status Date Vaccine Lot # [id number] Given 03/04/2018 Tdap Tetanus, W Pertussis [id number] Vital Signs Date Vital Result Comment 10/04/2018 12:00pm BP Systolic 100 mmHg BP [...] Date Facility Test Result H/L Range Note Vaginitis Plus 05/28/2018 [facility] Atopobium Low - 0 1 Nus[address] [facility] [place] [address] (600)- - Bvab 2 Low - 0 Score Megasphaera 1 Low - 0 Score Rocío albicans, Martha Negative Negative Rocío glabrata, Martha Negative Negative 2 Trich vag by Martha Negative Negative Chlamydia trachomatis, Martha Negative Negative Neisseria gonorrhoeae, Martha Negative Negative Hepatitis Panel, 05/28/2018 [facility] Hep A Ab, Negative Negative Acute [address] [facility] [place] [address] (600)- - HBsAg Screen Negative Negative Hep B Core Ab, IgM Negative Negative Hep C Virus Ab <0.1 s/coratio 0.0-0.9 3 Urine Culture 05/28/2018 [facility] Urine Culture, Final report Abnormal 4 Routine [address] [facility] [place] [address] (605)- - Result 1 Escherichia coli Abnormal 5 Antimicrobial Susceptibility See Comment: 6 Ua - Micro (Fma) 05/28/2018 [facility] Appearance CLEAR (607)- - Color YELLOW Glucose, [...] (Fma/CMC/CTX) - Z#Comments - Laboratory test 05/28/2018 [facility] HIV 1&2 Negative Negative finding (607)- - Antibody Screen (Fma) Laboratory test 04/26/2018 [facility] , neg finding (607)- - Serum Laboratory test 04/26/2018 [facility] HCG < 0.60 mIU/mL 7, 8 finding Urine 04/24/2018 [facility] SP Grav 1.025 (a) (607)- - Urine, (Fma/CMC/CTX) NEG Laboratory test finding 04/12/2018 [facility] Stool Culture SEE RESULT BELOW 9 Laboratory test finding 04/08/2018 [facility] Stool Culture <pending> Cardiolipin Igg/Igm 03/21/2018 [facility] Phospholipid Ab IgM, S < 9.4 MPL 10 Phospholipid Ab IgG < 9.4 GPL 11 Poc Urinalysis 03/11/2018 [facility] Poc Glucose, Urine Negative Negative Poc Bilirubin, Urine Negative Negative Poc Ketone, Urine Negative Negative Poc Specific [place], Urine 1.025 N 1.010-1.030 Poc Blood, Urine Negative Negative Poc pH, Urine 5.5 N 5-9 Poc Protein, Urine Negative Negative Poc Urobilinogen, Urine 0.2 Negative Poc Nitrite, Urine Negative Negative Poc Leukocytes, Urine Negative Negative Poc Color, Urine Yellow Poc Clarity, Urine Clear 12 Laboratory 03/11/2018 [facility] Poc , Positive Abnormal Negative 13 test finding Urine Laboratory 03/11/2018 [facility] HCG 6747.00 14, test finding mIU/mL 15 CBC Electronic 03/04/2018 [facility] WBC 8.0 4.0-10.0 Fma x10^3/UL RBC 4.33 x10^6/UL 3.93-6.00 HGB 13.7 g/dL 12.0-17.0 HCT 40 % 35-50 MCV 91.2 fL 80.0-95.0 MCH 31.6 pg 25.6-32.2 MCHC 34.7 g/dL 32.2-36.0 RDW-CV 12.3 % 11.6-14.4 PLT 280 x10^3/UL 163-400 MPV 11.2 fL 9.4-12.4 Rolly# 4.25 x10^3/UL 1.56-6.13 Lymph# 2.78 x10^3/UL 1.18-3.74 Madison# 0.93 x10^3/UL High 0.24-0.82 Eos # 0.0 x10^3/UL 0.0-0.5 Baso # 0.04 x10^3/UL 0.01-0.08 Rolly% 53.0 % 34.0-70.0 Lymph % 34.7 % 20.0-52.0 Madison% 11.6 % 5.0-12.0 Eos% 0.0 % Low 0.7-7.0 Baso% 0.5 % 0.1-1.2 Comprehensive Metabolic Prof 03/04/2018 [facility] Sodium 137 mEq/L 134-149 Potassium 5.0 mEq/L 3.6-5.5 Chloride 103 mEq/L [...] GFR >60 ml/min/1.73m^ >=60 Lipid Profile 03/04/2018 [facility] Cholesterol 181 mg/dL 120-200 Triglycerides 122 mg/dL 30-200 HDL Cholesterol 56 mg/dL 30-85 LDL (Calculated) 101 CALC 0-129 VLDL Cholesterol 24 mg/dL 0-50 HDL Risk Factor 3.2 CALC 0.0-4.4 Laboratory test 03/04/2018 [facility] TSH 1.56 mIU/L 0.50-6.00 finding Laboratory test 01/27/2018 [facility] Lab Test See Attached finding Laboratory test 11/28/2017 [facility] Magnesium 2.2 mg/dL N 1.9-2.7 16 finding Creatine Kinase(CK) 150 U/L N 10-223 17 Ferritin 19.5 ng/mL N 11-307 18 Folic Acid (Folate) 15.71 ng/mL >3.99 19 Vitamin B12 484 pg/mL N 180-914 20 Erythrocyte Sed Rate 10 mm/Hr N 0-14 21 Aso (Antistreptolysin O) Titer Negative IU/mL <200 Iu/mL 22 Ssa/SSB Abs Igg 11/28/2017 [facility] SS-A/Ro Antibody <0.2 U 23 SS-B/La Antibody <0.2 U 24 Anca AB Ser If 11/28/2017 [facility] C-Anca Negative Negative P-Anca Negative Negative 25 Hla B27 11/28/2017 [facility] Hla B27 Negative 26 Hla B27 Interp See Comment 27 Laboratory test finding 11/28/2017 [facility] Vitamin D, 1,25 77 pg/mL 18-78 28 Dihydroxy Celiac Hla 11/28/2017 [facility] Hla-Dqa1 SEE BELOW 29 Hla-DQB1 SEE BELOW 30 Celiac Gene Pairs Present? Yes Celiac Gene Interpretation See Comment 31 1 1APTIMA 2 This test was developed and its performance characteristics determined by [employer] [employer]. It has not been cleared or approved by the Food and Drug Administration. The FDA has determined that such clearance or approval is not necessary. 3 Negative: < 0.8 Indeterminate: 0.8 - 0.9 Positive: > 0.9 The CDC recommends that a positive HCV antibody result be followed up with a HCV Nucleic Acid Amplification test (702429). 4 Preliminary report 5 Escherichia coli 10,000-25,000 [...] Attend Dr: Maria T Conley MD Acct: [id number] Unit: [id number] AGE: 42 Location: [facility] Re04/12/18 SEX: F Status: REG REF SPEC: [id number] YUMIKO: 04/12/[address] [facility] [address]: Maria T Conley MD REQ: [id number] RECD: 04/12/18350 STATUS: COMP _ SOURCE: STOOL SPDESC: ORDERED: Stool Culture, O P: Giar/Crypt Procedure Result Reported Site Stool Culture Final [...] CONTINUED ON NEXT PAGE DEPARTMENT OF PATHOLOGY, [address] [place] [address] Kedar Zarate M.D. Director [facility] # [id number] Patient: JIGNESH BASILIO [id number] (Continued) Specimen: [id number] Collected: 04/12/18-999 Received: 04/12/18-144 (Continued) Procedure Result Reported Site O P: Giardia/Cryptospor Screen Final (continued) 04/14/18- 4363 Giardia and cryptosporidium antigen testing performed by enzyme immunoassay. If patient is immunocompromised or has traveled to or is from a developing country, a full ova and parasite exam with microscopic (OPMIC) is recommended. All samples will be held one month in case full ova and parasite testing is requested. Contact the Microbiology Department at [phone]. TEST LIMITATIONS: As with all diagnostic procedures, [...] . END OF REPORT DEPARTMENT OF PATHOLOGY, [address] [place] [address] Kedar Zarate M.D. Director [facility] # [id number] 10 REFERENCE VALUE <15.0 (Negative) 11 REFERENCE VALUE <15.0 (Negative) Test Performed by: [address] [address] Home Teaching Gr[employer] 7 And 8 Teacher: [id number] 13 Home Teaching Grades 7 And 8 Teacher: [id number] 14 [id number] 15 <5.0 Negative 5.0 - 25.0 Indeterminate (Repeat testing recommended after 72 hours) >25.0 Positive Perimenopausal women can display HCG levels of up to 20 mIU/mL 16 Please check labs today 17 Please [...] REFERENCE VALUE <1.0 (Negative) Test Performed by: [facility] - [address] [address] 25 Negative for cANCA and pANCA patterns by immunofluorescence. ADDITIONAL INFORMATION This test was developed and its performance characteristics determined by [facility] in a manner consistent with CLIA requirements. This test has not been cleared or approved by the U.S. Food and Drug Administration. Test Performed by: [facility] - [address] [address] REFERENCE VALUE Not Applicable 27 RESULT: HLA-B27 antigen was not detected. ADDITIONAL INFORMATION Method: Flow Cytometry Performing Laboratory CLIA# [id number] Test Performed by: [facility] - [address] [address] ADDITIONAL INFORMATION This test was developed and its performance characteristics determined by [facility] in a manner consistent with CLIA requirements. This test has not been cleared or approved by the U.S. Food and Drug Administration. Test Performed by: [facility] [address] [place] [address] 29 RESULT: 01:03,05:01 REFERENCE VALUE Not Applicable [...] medium resolution molecular values. Performing Laboratory CLIA# [id number] Test Performed by: [address] [address] Procedures Date Code Description Status 08/15/2018 76131378 Colonoscopy Completed 08/14/2018 21810510 Colonoscopy Completed 04/08/2018 08066 Remove Skin Tags Up To 15 Completed 03/04/2018 89135 Brief Emotional/Behav Assessment W/ Scoring Doc Per Completed Standard Inst 07/01/2013 85830493 Colonoscopy Completed Encounters Type Date Location Provider Dx Diagnosis Office Visit 08/16/2018 Main Office Maria T Conley, S06.0x0D Concussion without 9:20a M.D. 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 at [facility] Bfenwk4710/04/2018 - She Medina, NPJ20.9 Acute bronchitis, unspecifiedNew Medication:Benzonatate 200 mg - take one by mouth 3 times daily as needed for coughAcetaminophen-Codeine #3 300-30 mg - take one by mouth every 6 hours as needed for cough. may take 2as one dose at bedtime.Comments:Call or return if you develop new fever, trouble breathing, sudden worsening, or pain in the ears, face, or chest . While the symptoms of upper respiratory infections are uncomfortable and can take a long time to go away, they rarely present significant danger. Use a humidifier at night and drink plenty of fluids during the day. Ibuprofen or tylenol are good for headaches and sore throats. Other cough and cold remedies, such as guaifenesin or phenylephrine, will not help you get better any faster. They can temporarily help with symptoms , but you should only continue to take them if you actually experience some relief within a couple hours of taking a dose. It is normal to cough for 2-3 weeks. You should be re-evaluated at the office if your cough persists longer or if you have a cough with fever,wheezing, or worsening pain.AllComments:1. Patient has been queried about patient's goals/preferences and functional/ lifestyle goals at relevant visits. If relevant, describe: Has been discussed, noted above2. Treatment goals as explainedto the patient: see above3. Are there barriers to meeting treatment goals? Yes If Yes, please describe: Barriers include possible insurance limits, disease process, and difficulty with lifestyle changes4. Self-Management goals as described to the patient: Yes , see above As always, we strongly encourage a healthy diet and making physical activity a part of your every day life. If you have questions about how or where to start, please contact the office.
--- OUTSIDE RECORDS SUMMARY | 2018-10-23 20:29 | XMS REPORT | Continuity of Care Document ---
:1975 External Reference #:[id number] Author Name UZAIR Flores Address [address] [place] [address] Care Team Providers Name Role Phone Maria T Conley Care Team Information Research Associate Quality Control Qc Unavailable Maria T Conley Primary Care Physician Unavailable Payers Date Identification Numbers Payment Provider Subscriber Effective: 2016 Policy Number: [id number] / Of DANIEL Jignesh Basilio PayID: [id number] [address] [address] [place] [address] Advance Directives Description No Information Available Problems [...] Sex Unknown Education Highest level completed, PHD [employer], Doctorate nutrition. 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 Tramadol HCL Break in half, 30tabs M54.5 Alan A. 10/21/19 50mg Tablets as needed. Esme Rios 19 Methylprednisolone day 1- take 5 15tabs J02.0 Alan AAdelina 10/21/19 4mg Tablets tablets day 2- Esme Rios 19 take 4 tablets day 3- take 3 tablets day 4- take 2 tablets day 5- take 1 tablet Fluconazole take 1 pill at 3tabs J02.0 Alan A. 10/21/19 150mg Tablets the onset of Esme Rios 19 symptoms. Acetaminophen-Codeine #3 take one by 20tabs J20.9 She Davis 10/05/19 300-30mg mouth every 6 Adam, GRAIN BLENDER 19 Tablets hours as needed for cough. [...] Maria T Murrieta 4.5mg Tablets Esme Conley Cyclobenzaprine HCL one to two Unknown 5mg Tablets tablet every 00 night at bedtime as needed Methocarbamol 1 to 2 by mouth 80tabs Maria T Murrieta 500mg Tablets up to four times Esme Conley 00 [address]. [address] precautions Wellbutrin XL 1 by mouth once 30tabs Maria T Murrieta 150mg Tablets ER 24HR daily Esme Conley Ibuprofen 2 every 4 hours Unknown 200mg Tablets as needed 00 History Medications Benzonatate take one by 20caps J20.9 She Davis 10/04/2018 - 200mg mouth 3 times LAINE Medina 10/20/2018 Capsules daily as needed for cough Physical Therapy evaluate and M25.552 Maria T Murrieta 08/16/2018 - treat left hip Esme Conley 10/20/2018 pain Metrogel-Vaginal 1 applicator per 70gm [facility] 07/15/2018 - 0.75% vagina twice a [facility], 07/20/2018 Gel day x 5 days Afnp-C Nitrofurantoin 1 by mouth twice 14caps N39.0 Sandhya 05/28/2018 - Monohyd Macro a day with food [facility], 06/04/2018 100mg Afnp-C Capsules Off Work Note [...] 03/05/2018 - 110mcg/Act by mouth twice a sEme Conley 04/08/2018 Aerosol day Gabapentin 1 by [...] CPT Code Status Date Vaccine Lot # [id number] Given 03/04/2018 Tdap Tetanus, W Pertussis [id number] Vital Signs Date Vital Result Comment 10/20/2018 9:43am BP Systolic 102 mmHg BP [...] Atopobium Low - 0 [address] [place] [address] (021)- - Bvab 2 Low - 0 Score Megasphaera 1 Low - 0 Score Rocío albicans, Martha Negative Negative Rocío glabrata, Martha Negative Negative 2 Trich vag by Martha Negative Negative Chlamydia trachomatis, Martha Negative Negative Neisseria gonorrhoeae, Martha Negative Negative Hepatitis Panel, 05/28/2018 [facility] Hep A Ab, Negative Negative Acute [address] [facility] [place] [address] (607)- - HBsAg Screen Negative Negative Hep B Core Ab, IgM Negative Negative Hep C Virus Ab <0.1 s/coratio 0.0-0.9 3 Urine Culture 05/28/2018 [facility] Urine Culture, Final report Abnormal 4 Routine [address] [facility] [place] [address] (607)- - Result 1 Escherichia coli Abnormal 5 Antimicrobial Susceptibility See Comment: 6 Ua - Micro (a) 05/28/2018 [facility] Appearance CLEAR (607)- - Color YELLOW Glucose, Urine (Fma/CMC/CTX) NEG Bilirubin NEG Ketones NEG SP Grav 1.025 Blood TRACE-INTACT # PH 6.0 Protein NEG Urobil 0.2 Nitrite NEG Leukocytes (a/CMC/Centrex) SMALL # Hyaline - /Lpf Granular - /Lpf WBC (Fma,Centrex) 10-15 # RBC 2-3 # Mucus (Fma/CBC/Centrex) - /Lpf Epith OCC /Lpf # Bacteria 2+ /Hpf # Amorphous (Fma/CMC/Centrex) - /Lpf Crystals, Fluid (Fma/CMC/CTX) - Z#Comments - Laboratory test 05/28/2018 [facility] HIV 1&2 Negative Negative finding (607)- - Antibody Screen (a) Laboratory test 04/26/2018 [facility] , neg finding (607)- - Serum Laboratory test 04/26/2018 [facility] HCG < 0.60 mIU/mL 7, 8 finding Urine 04/24/2018 [facility] SP Grav 1.025 ([facility]) (607)- - Urine, (Fma/CMC/CTX) NEG Laboratory test finding 04/12/2018 [facility] Stool Culture SEE RESULT BELOW 9 Laboratory test finding 04/08/2018 [facility] Stool Culture <pending> Cardiolipin Igg/Igm 03/21/2018 [facility] Phospholipid Ab IgM, S < 9.4 MPL 10 Phospholipid Ab IgG < 9.4 GPL 11 Poc Urinalysis 03/11/2018 [facility] Poc Glucose, Urine Negative Negative Poc Bilirubin, Urine Negative Negative Poc Ketone, Urine Negative Negative Poc Specific [place], Urine 1.025 N 1.010-1.030 Poc Blood, Urine Negative Negative Poc pH, Urine 5.5 N 5-9 Poc Protein, Urine Negative Negative Poc Urobilinogen, Urine 0.2 Negative Poc Nitrite, Urine Negative Negative Poc Leukocytes, Urine Negative Negative Poc Color, Urine Yellow Poc Clarity, Urine Clear 12 Laboratory 03/11/2018 [facility] Poc , Positive Abnormal Negative 13 test finding Urine Laboratory 03/11/2018 [facility] HCG 6747.00 14, test finding mIU/mL 15 CBC Electronic 03/04/2018 [facility] WBC 8.0 4.0-10.0 Fma x10^3/UL RBC 4.33 x10^6/UL 3.93-6.00 HGB 13.7 g/dL 12.0-17.0 HCT 40 % 35-50 MCV 91.2 fL 80.0-95.0 MCH 31.6 pg 25.6-32.2 MCHC 34.7 g/dL 32.2-36.0 RDW-CV 12.3 % 11.6-14.4 PLT 280 x10^3/UL 163-400 MPV 11.2 fL 9.4-12.4 [place]olly# 4.25 x10^3/UL 1.56-6.13 Lymph# 2.78 x10^3/UL 1.18-3.74 [place]# 0.93 x10^3/UL High 0.24-0.82 Eos # 0.0 x10^3/UL 0.0-0.5 Baso # 0.04 x10^3/UL 0.01-0.08 Rolly% 53.0 % 34.0-70.0 Lymph % 34.7 % 20.0-52.0 [place]% 11.6 % 5.0-12.0 Eos% 0.0 % Low [...] Factor 3.2 CALC 0.0-4.4 Laboratory test 03/04/2018 [facility] TSH 1.56 mIU/L 0.50-6.00 finding Laboratory test 01/27/2018 [facility] ([facility] Test See Attached finding Laboratory test 11/28/2017 [facility] Magnesium 2.2 mg/dL N 1.9-2.7 16 finding Creatine Kinase(CK) 150 U/L N 10-223 17 Ferritin 19.5 ng/mL N 11-307 18 Folic Acid (Folate) 15.71 ng/mL >3.99 19 Vitamin B12 484 pg/mL N 180-914 20 Erythrocyte Sed Rate 10 mm/Hr N 0-14 21 Aso (Antistreptolysin O) Titer Negative IU/mL <200 Iu/mL 22 Ssa/SSB Abs Igg 11/28/2017 [facility] SS-A/Ro Antibody <0.2 U 23 SS-B/La Antibody <0.2 U 24 Anca AB Ser If 11/28/2017 [facility] C-Anca Negative Negative P-Anca Negative Negative 25 Hla B27 11/28/2017 [facility] Hla B27 Negative 26 Hla B27 Interp See Comment 27 Laboratory test finding 11/28/2017 [facility] Vitamin D, 1,25 77 pg/mL 18-78 28 Dihydroxy Celiac Hla 11/28/2017 [facility] Hla-Dqa1 SEE BELOW 29 Hla-DQB1 SEE BELOW 30 Celiac Gene Pairs Present? Yes Celiac Gene Interpretation See Comment 31 1 1APTIMA 2 This test was developed and its performance characteristics determined by [facility]. It has not been cleared or approved by the Food and Drug Administration. The FDA has determined that such clearance or approval is not necessary. 3 Negative: < 0.8 Indeterminate: 0.8 - 0.9 Positive: > 0.9 The CDC recommends that a positive HCV antibody result be followed up with a HCV Nucleic Acid Amplification test (573746). 4 Preliminary report 5 Escherichia coli 10,000-25,000 [...] Attend Dr: Maria T Conley MD Acct: [id number] Unit: [id number] AGE: 42 Location: [facility] Re04/12/18 SEX: F Status: REG REF SPEC: [id number] YUMIKO: 04/12/18-[address]: Maria T Conley MD REQ: [id number] RECD: 04/12/18 STATUS: COMP _ SOURCE: STOOL [...] CONTINUED ON NEXT PAGE DEPARTMENT OF PATHOLOGY, [address] [place] [address] Kedar Zarate M.D. Director [facility] # [id number] Patient: JIGNESH BASILIO [id number] (Continued) Specimen: [id number] Collected: 04/12/18-999 Received: 04/12/18-1439 (Continued) Procedure Result Reported Site O P: Giardia/Cryptospor Screen Final (continued) 04/14/18- 1413 Giardia and cryptosporidium antigen testing performed by enzyme immunoassay. If patient is immunocompromised or has traveled to or is from a developing country, a full ova and parasite exam with microscopic (OPMIC) is recommended. All samples will be held one month in case full ova and parasite testing is requested. Contact the Microbiology Department at [phone]. TEST LIMITATIONS: As with all diagnostic procedures, [...] . END OF REPORT DEPARTMENT OF PATHOLOGY, [address] [place] [address] Kedar Zarate M.D. Director [facility] # [id number] 10 REFERENCE VALUE <15.0 (Negative) 11 REFERENCE VALUE <15.0 (Negative) Test Performed by: [address] [address] 12 Hydro Pneumatic Tester: [id number] Hydro Pneumatic Tester: [id number] 14 [id number] 15 <5.0 Negative 5.0 - 25.0 Indeterminate [...] REFERENCE VALUE <1.0 (Negative) Test Performed by: [facility] - [address] [address] 25 Negative for cANCA and pANCA patterns by immunofluorescence. ADDITIONAL INFORMATION This test was developed and its performance characteristics determined by [facility] in a manner consistent with CLIA requirements. This test has not been cleared or approved by the U.S. Food and Drug Administration. Test Performed by: [facility] - [address] [address] 26 REFERENCE VALUE Not Applicable 27 RESULT: HLA-B27 antigen was not detected. ADDITIONAL INFORMATION Method: Flow Cytometry Performing Laboratory CLIA# [id number] Test Performed by: [facility] - [address] [address] 28 ADDITIONAL INFORMATION This test was developed and its performance characteristics determined by [facility] in a manner consistent with CLIA requirements. This test has not been cleared or approved by the U.S. Food and Drug Administration. Test Performed by: [facility] [address] [place] [address] 29 RESULT: 01:03,05:01 REFERENCE VALUE Not Applicable [...] medium resolution molecular values. Performing Laboratory CLIA# [id number] Test Performed by: [facility] - [address] [address] Procedures Date Code Description Status 10/04/2018 03495 Pulse Oximetry Completed 08/15/2018 41312411 Colonoscopy Completed 08/14/2018 39610417 Colonoscopy Completed 04/08/2018 55440 Remove Skin Tags Up To 15 Completed 03/04/2018 02265 Brief Emotional/Behav Assessment W/ Scoring Doc Per Completed Standard Inst 07/01/2013 30883042 Colonoscopy Completed Encounters Type Date Location Provider Dx Diagnosis Office Visit 10/04/2018 Main Office She Davis J20.9 Acute bronchitis, 11:45a Adam, LAINE unspecified Office Visit 08/16/2018 Main Office Maria [...] Encounter for immunization Office Visit 01/24/2018 10:00a [facility] Office Maria T Murrieta F43.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 Salt water gargles as needed. Medrol dose pack for discomfort of throat. Vitamin C2,000 mg daily until symptoms resolve.Lots of rest, fluids, and good nutrition. If symptoms do not improve in the next 2-3 days please let us know.M54.5 Low back painNew Medication:Tramadol HCL 50 mg - Break in half, as needed.Comments:Takes Ultram on a limited basis, refill given today.B37.3 Candidiasis of vulva and vaginaComments:Take diflucan 1 tablet for yeast infection, continue monistat for 3 more days to finish course. Callif symptoms do not improve.
--- OUTSIDE RECORDS SUMMARY | 2018-10-23 20:29 | XMS REPORT | Continuity of Care Document ---
:1975 External Reference #:[id number] Author Name UZAIR Flores Address [address] [facility] [place] [address] Care Team Providers Name Role Phone Maria T Conley Care Team Information Return Clerk Unavailable Maria T Conley Primary Care Physician Unavailable Payers Date Identification Numbers Payment Provider Subscriber Effective: 2016 Policy Number: [id number] / Of DANIEL Jignesh Basilio PayID: [id number] [address] [place] [address] Advance Directives Description No Information Available Problems Active Problems Provider Date Fibromyalgia Maria T Conley M.D. Onset: 04/03/2018 Microscopic colitis Maria T Conley M.D. Onset: 04/03/2018 Sjogren's syndrome Maria T Conley M.D. Onset: 04/03/2018 Lumbar radiculopathy Maria T Conley M.D. Onset: 04/03/2018 Asthma without status asthmaticus Maria T Conely M.D. Onset: 04/03/2018 Celiac disease Maria T Conley M.D. Onset: 04/03/2018 Hypermobility syndrome Maria T Conley M.D. Onset: 04/03/2018 Family History Date Family Member(s) Observation Comments General Stroke MGF General Dementia MGF. Rapid Alzheimers. General Lung Cancer PGF Father 71 Mother 69 First Sister 46 Second Sister 42 Social History Type Date Description Comments Sex Unknown Education Highest level completed, PHD [employer], Doctorate nutrition. 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 [...] 10/20/2018 pain Metrogel-Vaginal 1 applicator per 70gm [facility] 07/15/2018 - 0.75% vagina twice a [facility], 07/20/2018 Gel day x 5 days Afnp-C Nitrofurantoin 1 by mouth twice 14caps N39.0 Sandhya 05/28/2018 - Monohyd Macro a day with food [facility], 06/04/2018 100mg Afnp-C Capsules Off Work [...] CPT Code Status Date Vaccine Lot # [id number] Given 03/04/2018 Tdap Tetanus, W Pertussis [id number] [...] Low - 0 Score 1 Nuswab [address] [place] [address] (607)- - Bvab 2 Low - 0 Score Megasphaera 1 Low - 0 Score Rocío albicans, Martha Negative Negative Rocío glabrata, Martha Negative Negative 2 Trich vag by Martha Negative Negative Chlamydia trachomatis, Martha Negative Negative Neisseria gonorrhoeae, Martha Negative Negative Hepatitis Panel, 05/28/2018 [facility] Hep A Ab, Negative Negative Acute [address] [facility] [place] [address] (607)- - HBsAg Screen Negative Negative Hep B Core Ab, IgM Negative Negative Hep C Virus Ab <0.1 s/coratio 0.0-0.9 3 Urine Culture 05/28/2018 [facility] Urine Culture, Final report Abnormal 4 Routine [address] [facility] [place] [address] (607)- - Result 1 Escherichia coli Abnormal 5 Antimicrobial Susceptibility See Comment: 6 Ua - Micro (a) 05/28/2018 [facility] Appearance CLEAR (607)- - Color YELLOW Glucose, [...] (Fma/CMC/CTX) - Z#Comments - Laboratory test 05/28/2018 [facility] HIV 1&2 Negative Negative finding (607)- - Antibody Screen (Fma) Laboratory test 04/26/2018 [facility] , neg finding (607)- - Serum Laboratory test 04/26/2018 [facility] HCG < 0.60 mIU/mL 7, 8 finding Urine 04/24/2018 [facility] SP Grav 1.025 ([facility]) (607)- - Urine, (Fma/CMC/CTX) NEG Laboratory test finding 04/12/2018 [facility] Stool Culture SEE RESULT BELOW 9 Laboratory test finding 04/08/2018 [facility] Stool Culture <pending> Cardiolipin Igg/Igm 03/21/2018 [facility] Phospholipid Ab IgM, S < 9.4 MPL 10 Phospholipid Ab IgG < 9.4 GPL 11 Laboratory test 03/11/2018 [facility] HCG 6747.00 mIU/mL 12, 13 finding Poc Urinalysis 03/11/2018 [facility] Poc Glucose, Urine Negative Negative Poc Bilirubin, Urine Negative Negative Poc Ketone, Urine Negative Negative Poc Specific [place], Urine 1.025 N 1.010-1.030 Poc Blood, Urine Negative Negative Poc pH, Urine 5.5 N 5-9 Poc Protein, Urine Negative Negative Poc Urobilinogen, Urine 0.2 Negative Poc Nitrite, Urine Negative Negative Poc Leukocytes, Urine Negative Negative Poc Color, Urine Yellow Poc Clarity, Urine Clear 14 Laboratory test 03/11/2018 [facility] Poc , Positive Abnormal Negative 15 finding Urine Comprehensive 03/04/2018 [facility] Sodium 137 mEq/L 134-149 Metabolic Prof Potassium [...] >60 ml/min/1.73m^ >=60 Lipid Profile 03/04/2018 [facility] Cholesterol 181 mg/dL 120-200 Triglycerides 122 mg/dL 30-200 HDL Cholesterol 56 mg/dL 30-85 LDL (Calculated) 101 CALC 0-129 VLDL Cholesterol 24 mg/dL 0-50 HDL Risk Factor 3.2 CALC 0.0-4.4 CBC Electronic Fma 03/04/2018 [facility] WBC 8.0 x10^3/UL 4.0-10.0 RBC 4.33 x10^6/UL 3.93-6.00 HGB 13.7 g/dL 12.0-17.0 HCT 40 % 35-50 MCV 91.2 fL 80.0-95.0 MCH 31.6 pg 25.6-32.2 MCHC 34.7 g/dL 32.2-36.0 RDW-CV 12.3 % 11.6-14.4 PLT 280 x10^3/UL 163-400 MPV 11.2 fL 9.4-12.4 [place]# 4.25 x10^3/UL 1.56-6.13 Lymph# 2.78 x10^3/UL 1.18-3.74 [place]# 0.93 x10^3/UL High 0.24-0.82 Eos # 0.0 x10^3/UL 0.0-0.5 Baso # 0.04 x10^3/UL 0.01-0.08 [place]% 53.0 % 34.0-70.0 Lymph % 34.7 % 20.0-52.0 [place]% 11.6 % 5.0-12.0 Eos% 0.0 % Low 0.7-7.0 Baso% 0.5 % 0.1-1.2 Laboratory test 03/04/2018 [facility] TSH 1.56 mIU/L 0.50-6.00 finding Laboratory test 01/27/2018 [facility] ([facility] Test See Attached finding Laboratory test 11/28/2017 [facility] Magnesium 2.2 mg/dL N 1.9-2.7 16 finding Creatine Kinase(CK) 150 U/L N 10-223 17 Ferritin 19.5 ng/mL N 11-307 18 Folic Acid (Folate) 15.71 ng/mL >3.99 19 Vitamin B12 484 pg/mL N 180-914 20 Erythrocyte Sed Rate 10 mm/Hr N 0-14 21 Aso (Antistreptolysin O) Titer Negative IU/mL <200 Iu/mL 22 Ssa/SSB Abs Igg 11/28/2017 [facility] SS-A/Ro Antibody <0.2 U 23 SS-B/La Antibody <0.2 U 24 Anca AB Ser If 11/28/2017 [facility] C-Anca Negative Negative P-Anca Negative Negative 25 Hla B27 11/28/2017 [facility] Hla B27 Negative 26 Hla B27 Interp See Comment 27 Laboratory test finding 11/28/2017 [facility] Vitamin D, 1,25 77 pg/mL 18-78 28 Dihydroxy Celiac Hla 11/28/2017 [facility] Hla-Dqa1 SEE BELOW 29 Hla-DQB1 SEE BELOW 30 Celiac Gene Pairs Present? Yes Celiac Gene Interpretation See Comment 31 1 1APTIMA 2 This test was developed and its performance characteristics determined by [facility]. It has not been cleared or approved by the Food and Drug Administration. The FDA has determined that such clearance or approval is not necessary. 3 Negative: < 0.8 Indeterminate: 0.8 - 0.9 Positive: > 0.9 The CDC recommends that a positive HCV antibody result be followed up with a HCV Nucleic Acid Amplification test (962887). 4 Preliminary report 5 Escherichia coli 10,000-25,000 [...] Attend Dr: Maria T Conley MD Acct: [id number] Unit: [id number] AGE: 42 Location: [facility] Re04/12/18 SEX: F Status: REG REF SPEC: [id number] YUMIKO: 04/12/18-[address]: Maria T oCnley MD REQ: [id number] RECD: 04/12/18 STATUS: COMP _ SOURCE: STOOL SPDESC: ORDERED: Stool Culture, O P: Gikya/Crypt Procedure Result Reported Site Stool Culture Final [...] CONTINUED ON NEXT PAGE DEPARTMENT OF PATHOLOGY, [address] [place] [address] Kedar Zarate M.D. Director [facility] # [id number] Patient: JIGNESH BASILIO [id number] (Continued) Specimen: [id number] Collected: 04/12/18-999 Received: 04/12/18 (Continued) Procedure Result [...] is requested. Contact the Microbiology Department at [phone]. TEST LIMITATIONS: As with all diagnostic procedures, [...] . END OF REPORT DEPARTMENT OF PATHOLOGY, [address] [place] [address] Kedar Zarate M.D. Director [facility] # [id number] 10 REFERENCE VALUE <15.0 (Negative) 11 REFERENCE VALUE <15.0 (Negative) Test Performed by: [address] [address] 12 [id number] 13 <5.0 Negative 5.0 - 25.0 Indeterminate (Repeat testing recommended after 72 hours) >25.0 Positive Perimenopausal women can display HCG levels of up to 20 mIU/mL 14 Bread Stacker: [id number] 15 Bread Stacker: [id number] 16 Please check labs today 17 Please [...] REFERENCE VALUE <1.0 (Negative) Test Performed by: [address] [address] 25 Negative for cANCA and pANCA patterns by immunofluorescence. ADDITIONAL INFORMATION This test was developed and its performance characteristics determined by [facility] in a manner consistent with CLIA requirements. This test has not been cleared or approved by the U.S. Food and Drug Administration. Test Performed by: [facility] - [address], [place] [address] 26 REFERENCE VALUE Not Applicable 27 RESULT: HLA-B27 antigen was not detected. ADDITIONAL INFORMATION Method: Flow Cytometry Performing Laboratory CLIA# [id number] Test Performed by: [facility] [address] [place] [address] 28 ADDITIONAL INFORMATION This test was developed and its performance characteristics determined by [facility] in a manner consistent with CLIA requirements. This test has not been cleared or approved by the U.S. Food and Drug Administration. Test Performed by: [facility] - [facility] [address] [place] [address] 29 RESULT: 01:03,05:01 REFERENCE VALUE Not Applicable [...] medium resolution molecular values. Performing Laboratory CLIA# [id number] Test Performed by: [address] [address] Procedures Date Code Description Status 10/04/2018 98813 Pulse Oximetry Completed 08/15/2018 [id number] Colonoscopy Completed 08/14/2018 [id number] Colonoscopy Completed 04/08/2018 06491 Remove Skin Tags Up To 15 Completed 03/04/2018 04409 Brief Emotional/Behav Assessment W/ Scoring Doc Per Completed Standard Inst 07/01/2013 [id number] Colonoscopy Completed Encounters Type Date Location Provider [...] Encounter for immunization Office Visit 01/24/2018 10:00a [facility] Office Maria T Murrieta F43.21 Adjustment Esme Conley disorder with depressed mood K90.0 Celiac disease K30 Functional dyspepsia G89.4 Chronic pain syndrome Plan of Treatment 10/20/2018 - Fanny Pablo, PAJ02.0 Streptococcal pharyngitisNew Medication: Penicillin V Potassium 500 [...]
[2018-10-23 22:24] LABS: Urine Appearance Cloudy; Urine Bacteria Absent (Absent); Urine Bilirubin Negative (Negative); Urine Blood 2+ (Negative); Urine Color Yellow; Urine Glucose Negative (Negative); Urine Ketones Negative (Negative); Urine Nitrite Negative (Negative); Urine Protein Negative (Negative); Urine Red Blood Cell 1+(3-5/hpf) (Absent); Urine Specific Gravity 1.015 (1.010-1.030); Urine Squamous Epithelial Cell Present (Absent); Urine Urobilinogen Negative (Negative); Urine White Blood Cell 3+(>20/hpf) (Absent)
--- NOTE | 2018-10-23 22:29 | ED ---
Abdominal Pain/Female - HPI Summary HPI Summary: Patient sent by [facility] to ED for further evaluation of suprapubic abdominal pain, burning with urination, white clumpy vaginal discharge 36 hours. Suprapubic pain described as constant, progressive. History of recent yeast infection, has taken Diflucan on Saturday morning and this morning. States recurrent yeast infections 5 months. Currently on penicillin for strep infection. Also complains of frequent UTIs, states this feels like UTI. Denies fever, cough, sore throat, CP, SOB, N/V/D, change in BM , vaginal bleeding, vaginal pain.. Medical history is autoimmune disease, herniated disc. Abdominal surgical history is none. Nonsmoker. - History of Current Complaint Chief Complaint: EDUrogenitalProblems Stated Complaint: DOCTOR SENT FOR A CT SCAN PER PT Time Seen by Provider: 10/23/18 21:29 Hx Obtained From: Patient Hx Last Menstrual Period: 03/29/18 Onset/Duration: Gradual Onset, Lasting Days Timing: Constant Severity Initially: Severe Severity Currently: Severe Pain Intensity: 8 Pain Scale Used: 0-10 Numeric Location: Suprapubic Radiates: No Character: Cramping Aggravating Factor(s): Nothing Alleviating Factor(s): Nothing Associated Signs and Symptoms: Positive: Vaginal Discharge Allergies/Adverse Reactions: Allergies Allergy/AdvReac Type Severity Reaction Status Date / Time budesonide [From Symbicort] Allergy Diarrhea Verified 10/23/18 20:14 epinephrine Allergy Unknown Verified 07/23/18 14:55 Reaction Details formoterol [From Symbicort] Allergy Diarrhea Verified 10/23/18 20:14 gluten Allergy Abdominal Verified 07/23/18 14:55 Pain PMH/Surg Hx/FS Hx/Imm Hx Endocrine/Hematology History: Denies: Hx Anticoagulant Therapy, Hx Diabetes, Hx Thyroid Disease Cardiovascular History: Denies: Hx Congestive Heart Failure, Hx Deep Vein Thrombosis, Hx Hypertension , Hx Myocardial Infarction, Hx Pacemaker/ICD, Other Cardiovascular Problems/ Disorders Respiratory History: Reports: Hx Asthma - EXERCISE INDUCED Denies: Hx Chronic Obstructive Pulmonary Disease (COPD), Hx Lung Cancer, Hx Pneumonia, Hx Pulmonary Embolism, Other Respiratory Problems/Disorders GI History: Reports: Other GI Disorders - ulcerative colitis Denies: Hx Gall Bladder Disease, Hx Gastrointestinal Bleed, Hx Ulcer, Hx Urosepsis History: Denies: Hx Kidney Stones, Hx Renal Disease Musculoskeletal History: Reports: Hx Arthritis - spine,, Other Musculoskeletal History - hypermobility syndrome Denies: Hx Rheumatoid Arthritis, Hx Osteoporosis Sensory History: Reports: Hx Contacts or Glasses - contacts, glasses Denies: Hx Hearing Aid, Other Sensory Impairments Opthamlomology History: Reports: Hx Contacts or Glasses - contacts, glasses Denies: Other Sensory Impairments Neurological History: Reports: Hx Nerve Disease Denies: Hx Dementia, Hx Migraine, Hx Seizures, Hx Transient Ischemic Attacks (TIA), Other Neuro Impairments/Disorders - PAIN CLINIC PATIENT Psychiatric History: Denies: Hx Anxiety, Hx Depression, Hx Panic Disorder, Hx Schizophrenia, Hx Bipolar Disorder - Surgical History Surgery Procedure, Year, and Place: LEFT FOOT BUNIONECTOMY 2008. RIGHT FOOT SLICED THROUGH TENDON ON BIG TOE AND REATTACHED IT TO THE 2ND TOE-2008 Hx Anesthesia Reactions: No Infectious Disease History: No Infectious Disease History: Denies: Hx Hepatitis, Hx Human Immunodeficiency Virus (HIV), Traveled Outside the [place] in Last 30 Days - Family History Known Family History: Positive: Hypertension - Social History Alcohol Use: Rare Alcohol Amount: 3 per week Hx Substance Use: No Substance Use Type: Reports: None Hx Tobacco Use: No Smoking Status (MU): Never Smoked Tobacco Have You Smoked in the Last Year: No Review of Systems Constitutional: Negative Eyes: Negative ENT: Negative Cardiovascular: Negative Respiratory: Negative Positive: Abdominal Pain Positive: burning, pain Musculoskeletal: Negative Skin: Negative Neurological: Negative Psychological: Normal All Other Systems Reviewed And Are Negative: Yes Physical Exam - Summary Physical Exam Summary: Suprapubic pain. Abdominal exam otherwise unremarkable. Lung sounds clear to auscultation bilaterally. RRR. No cervical motion tenderness or adnexal tenderness on pelvic exam. Pelvic exam positive for white clumpy discharge. Triage Information Reviewed: Yes Vital Signs On Initial Exam: Initial Vitals Temp Pulse Resp BP Pulse Ox 98.5 F 84 18 125/71 100 10/23/18 20:14 10/23/18 20:14 10/23/18 20:14 10/23/18 20:14 10/23/18 20:14 Vital Signs Reviewed: Yes Appearance: Positive: Well-Appearing Skin: Positive: Warm Head/Face: Positive: Normal Head/Face Inspection Eyes: Positive: Normal Neck: Positive: Supple Respiratory/Lung Sounds: Positive: Clear to Auscultation Cardiovascular: Positive: Normal Abdomen Description: Positive: Other: Pelvic Exam: Positive: External Exam Normal, Discharge - Clumpy white.. Negative: No Cerv. Motion Tender, No Masses, Active Bleeding, Blood, Cervicitis , Lesions, Mass, Tender w/ Cervical Motion, Tender Adnexa, Ulcers Musculoskeletal: Positive: Normal Neurological: Positive: Normal Psychiatric: Positive: Normal AVPU Assessment: Alert - [place] Coma Scale Best Eye Response: 4 - Spontaneous Best Motor Response: 6 - Obeys Commands Best Verbal Response: 5 - Oriented Coma Scale Total: 15 Diagnostics - Vital Signs Vital Signs Temp Pulse Resp BP Pulse Ox 10/23/18 21:34 72 109/73 100 10/23/18 20:14 98.5 F 84 18 125/71 100 - Laboratory Lab Results: Lab Results 10/23/18 Range/Units 21:31 Urine Color Yellow Urine Appearance Cloudy Urine pH 5.0 (5-9) Ur Specific [place] 1.015 (1.010-1.030) Urine Protein Negative (Negative) Urine Ketones Negative (Negative) Urine Blood 2+ A (Negative) Urine Nitrate Negative (Negative) Urine Bilirubin Negative (Negative) Urine Urobilinogen Negative (Negative) Ur Leukocyte Esterase 2+ A (Negative) Urine WBC (Auto) 3+(>20/hpf) A (Absent) Urine RBC (Auto) 1+(3-5/hpf) A (Absent) Ur Squamous Epith Cells Present A (Absent) Urine Bacteria Absent (Absent) Urine Glucose Negative (Negative) Result Diagrams: 10/23/18 22:25 10/23/18 22:25 Lab Statement: Any lab studies that have been ordered have been reviewed, and results considered in the medical decision making process. Abdominal Pain Fem Course/Dx - Course Course Of Treatment: Patient sent by [facility] to ED for further evaluation of suprapubic abdominal pain, burning with urination, white clumpy vaginal discharge 36 hours. Pain described as constant, progressive. History of recent yeast infection, states recurrent yeast infections 5 months. Currently on penicillin for strep infection. Denies fever, cough, sore throat , CP, SOB, N/V/D, change in BM, vaginal bleeding, vaginal pain.. Medical history is autoimmune disease, herniated disc. Abdominal surgical history is none. Nonsmoker. Physical exam:Suprapubic pain. Abdominal exam otherwise unremarkable. Lung sounds clear to auscultation bilaterally. RRR. No cervical motion tenderness or adnexal tenderness on pelvic exam. Pelvic exam positive for white clumpy discharge. Vital signs within normal limits. UA likely positive for UTI. Labs unremarkable. Pelvic swabs pending. Patient currently taking penicillin for strep throat. Will be switched to Keflex to cover UTI and strep throat. History of yeast infection, likely current yeast infection. Patient took Diflucan this morning, is aware she has to wait 72 hours between treatments. Rx for Diflucan and keflex sent to pharmacy. Rx for oxycodone for ab pain. - Diagnoses Provider Diagnoses: UTI (urinary tract infection), Vaginal candidiasis Discharge - Sign-Out/Discharge Documenting (check all that apply): Patient Departure Patient Received Moderate/Deep Sedation with Procedure: No - Discharge Plan Condition: Stable Disposition: HOME Prescriptions: Cephalexin CAP* [Keflex CAP*] 500 mg PO TID 10 Days #30 cap Fluconazole 150 MG TAB* [Diflucan 150 MG TAB*] 150 mg PO ONCE 9 Days #3 tablet Oxycodone HCl 5 mg PO Q8H 2 Days #4 tablet MDD 3 tabs Patient Education Materials: Urinary Tract Infection in Women (ED), Yeast Infection (ED) Referrals: Maria T Conley MD [Primary Care Provider] - Additional Instructions: Take antibiotics as directed. Take Diflucan for yeast infection. You may repeat Diflucan in 72 hours if symptoms persist. Cultures are pending and you' ll be called if they are positive. Tender to the ED for any new or worsening symptoms. - Billing Disposition and Condition Condition: STABLE Disposition: Home
[2018-10-23 22:37] LABS: Hematocrit 38 % (33-41); Hemoglobin 12.8 g/dL (12.0-16.0); Mean Corpuscular HGB Conc 34 g/dL (31-36); Mean Corpuscular Hemoglobin 31 pg (27-31); Mean Corpuscular Volume 93 fL (80-97); Platelet Count 263 10^3/uL (150-450); Red Blood Count 4.13 10^6 /uL (3.70-4.87); Red Cell Distribution Width 12 % (10.5-15); White Blood Count 8.1 10^3/uL (3.5-10.8)
[2018-10-23 22:42] LABS: ABS Basophils 0.1 10^3/ul (0-0.2); ABS Eosinophils 0.1 10^3/ul (0-0.6); ABS Monocytes 0.9 10^3/ul (0-0.8); ABS Neutrophils 4.1 10^3/ul (1.5-7.7); ABS Nucleated RBC 0 10^3/ul; Eosinophil % 1.4 %; Lymphocyte % 36.8 %; Nucleated Red Blood Cells % 0
[2018-10-23 22:50] LABS: ALT 14 U/L (7-52); AST 17 U/L (13-39); Albumin 3.8 g/dL (3.2-5.2); Albumin/Globulin Ratio 1.3 (1-3); Alkaline Phosphatase 47 U/L (34-104); Anion Gap 6 mmol/L (2-11); BUN/Creatinine Ratio 15.9 (8-20); Blood Urea Nitrogen 13 mg/dL (6-24); C Reactive Protein 1.88 mg/L (<8.01); CO2 Carbon Dioxide 26 mmol/L (22-32); Calcium 8.7 mg/dL (8.6-10.3); Chloride 105 mmol/L (101-111); EGFR African American 91.2 (>60); EGFR Non-African American 75.4 (>60); Globulin 2.9 g/dL (2-4); Glucose 111 mg/dL (70-100); Potassium 4.5 mmol/L (3.5-5.0); Sodium 137 mmol/L (135-145); Total Protein 6.7 g/dL (6.4-8.9)
[2018-10-23 22:57] LABS: HCG Pregnancy < 0.60 mIU/mL
[2018-10-23] MEDS ORDERED: Cephalexin CAP* 500 MG PO ONE ×2 (23:28→23:29)
[2018-10-23] MEDS ORDERED: oxyCODONE TAB* 5 MG TAB PO ONE (23:29)
[2018-10-23 23:54] VITALS: BP 106/65
[2018-10-24 13:01] LABS: Neisseria gonorrhoeae (GC) RNA Negative (Negative)
[2018-10-24 13:06] LABS: Trichomonas vaginalis Result Negative (Negative)
--- NOTE | 2018-10-25 09:47 | PN ---
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
== END 2018-10-23 23:53 | disposition home or self-care (01) ==
LOC: ED 20:12
DX: N39.0 Urinary tract infection, site not specified (principal); B37.3 Candidiasis of vulva and vagina; J45.909 Unspecified asthma, uncomplicated; K51.90 Ulcerative colitis, unspecified, without complications; M46.90 Unspecified inflammatory spondylopathy, site unspecified; Z88.8 Allergy status to other drugs, medicaments and biological substances
CPT/HCPCS: 36415; 76830; 80053; 81003; 81015; 84702; 85025; 86140; 87077; 87086; 87186; 87480; 87491; 87510; 87591; 87661; 99283; A9270-GY

== ENCOUNTER 2023-07-24 22:43 | Observation (INO) ==
[2023-07-24] MEDS ORDERED: Lactated Ringers 1000 ml BAG 1,000 ML IV ONE (23:17)
[2023-07-24] MEDS ORDERED: Ondansetron 4 mg VIAL 2 MG/ML 2 ml VIAL IV ONE (23:17)
[2023-07-24 23:44] LABS: ABS Basophils 0.1 10^3/uL (0.0-0.1); ABS Monocytes 0.6 10^3/uL (0.0-0.9); ABS Neutrophils 2.2 10^3/uL (1.5-7.6); Eosinophil % 0.8 %; Hematocrit 36.5 % (35-45); Hemoglobin 12.4 g/dL (11.5-14.3); Lymphocyte % 50.8 %; Mean Corpuscular Hemoglobin 31.4 pg (27-33); Mean Corpuscular Volume 92.4 fL (80-97); Mean Platelet Volume 8.3 fL (7.5-11.2); Platelet Count 276 10^3/uL (150-450); Red Blood Count 3.95 10^6/uL (3.63-4.92); Red Cell Distribution Width 12.3 % (12-17); White Blood Count 5.8 10^3/uL (3.8-11.8)
[2023-07-24] MEDS ORDERED: Morphine 2 MG/ML SYRINGE IV ONE (23:46)
[2023-07-24] MEDS ORDERED: Famotidine IV 10 MG/ML 2 ml VIAL (20 mg) IV SLOW PU ONE (23:59)
[2023-07-25 00:06] LABS: ALT 22 U/L (7-52); AST 25 U/L (13-39); Albumin 4.4 g/dL (3.2-5.2); Albumin/Globulin Ratio 1.7 (1-3); Alkaline Phosphatase 41 U/L (35-149); Anion Gap 8 mmol/L (2-16); Blood Urea Nitrogen 15 mg/dL (6-24); C Reactive Protein < 1.00 mg/L (<8.01); CO2 Carbon Dioxide 26 mmol/L (22-32); Calcium 9.4 mg/dL (8.6-10.3); Chloride 106 mmol/L (101-111); Creatinine, Serum 0.84 mg/dL (0.51-0.95); Globulin 2.6 g/dL (2-4); Glucose 97 mg/dL (70-100); Lipase 23 U/L (11.0-82.0); Magnesium 2.2 mg/dL (1.9-2.7); Potassium 4.1 mmol/L (3.5-5.0); Sodium 140 mmol/L (135-145); Total Bilirubin 0.3 mg/dL (0.2-1.0); eGFR CKD-EPI 85.1 (>60)
[2023-07-25 00:10] LABS: HCG Pregnancy < 0.60 mIU/mL
[2023-07-25] MEDS ORDERED: Al Hydrox/Mg Hydrox/Simet LIQ 30 ML UDC PO ONE (00:19)
[2023-07-25] MEDS ORDERED: Iohexol 350 (CONTRAST) 500 ML MDV IV ONE (00:25)
[2023-07-25 01:23] LABS: Urine Appearance Clear; Urine Bilirubin Negative (Negative); Urine Blood 1+ (Negative); Urine Color Straw; Urine Glucose Negative (Negative); Urine Ketones Negative (Negative); Urine Nitrite Negative (Negative); Urine Protein Negative (Negative); Urine Specific Gravity 1.005 (1.002-1.030); Urine Urobilinogen Negative (Negative)
[2023-07-25] MEDS ORDERED: HYDROmorphone 1 MG/1 ML SYRINGE IV SLOW PU ONE (01:42)
[2023-07-25 01:43] LABS: Urine Bacteria Absent (Absent); Urine Red Blood Cell Trace(0-2/hpf) (Absent); Urine Squamous Epithelial Cell Present (Absent); Urine White Blood Cell Trace(0-5/hpf) (Absent)
[2023-07-25] MEDS ORDERED: Metoclopramide 5 MG/ML VIAL (10 mg) IV SLOW PU ONE (02:03)
[2023-07-25] MEDS ORDERED: Lactated Ringers 1000 ml BAG 1,000 ML IV ONE (02:18)
[2023-07-25] MEDS ORDERED: HYDROmorphone 0.5 MG/0.5 ML SYRINGE IV SLOW PU ONE (03:40)
[2023-07-25] MEDS ORDERED: Lactated Ringers 1000 ml BAG 1,000 ML IV SCH (05:00)
[2023-07-25] MEDS ORDERED: HYDROmorphone 0.5 MG/0.5 ML SYRINGE IV SLOW PU PRN ×2 (05:31→09:24)
[2023-07-25] MEDS ORDERED: Ondansetron 4 mg VIAL 2 MG/ML 2 ml VIAL IV PRN (07:50)
[2023-07-25] MEDS ORDERED: Morphine 2 MG/ML SYRINGE IV PRN (07:51)
[2023-07-25] MEDS ORDERED: LISDEXAMFETAMINE 10 MG PO SCH (09:00)
[2023-07-25] MEDS ORDERED: Albuterol HFA INHALER 8 gm MDI INH PRN (09:00)
[2023-07-25] MEDS ORDERED: HYDROcodone/ACETAMIN 5/325 mg TAB PO PRN (09:25)
[2023-07-25 13:46] VITALS: BP 126/79
== END 2023-07-25 17:30 | disposition home or self-care (01) ==
LOC: EDHOLD 22:43 → ED 22:43 → SUATTDRO 07-25 02:57 → MED 07-25 07:33
PROVIDERS: ADMIT Internal Medicine; ATTEND Internal Medicine